=== PATIENT | female | born 1980 | race Hispanic/Latino ===

== ENCOUNTER 2017-04-02 11:05 | Inpatient (IN) | payer MEDICAID ==
[2017-04-02] MEDS ORDERED: levETIRAcetam 1,000 MG in Sodium Chloride 0.9% 100 ML IV STA (11:35)
[2017-04-02] MEDS ORDERED: Sodium Chloride 0.9% 1,000 ML IV STA (11:36)
--- NOTE | 2017-04-02 11:52 | ED PDOC ---
Arrival/HPI - General Chief Complaint: Seizure Time Seen by Provider: 04/02/17 11:14 Historian: Family - History of Present Illness Narrative History of Present Illness (Text): 04/02/17 12:04 A 37 year old female, whose past medical history includes seizures and traumatic brain injury with [employer] shunt, brought in by EMS after having episode of seizure at home. According to patient's cousin, patient began having generalized clonic tonic seizure and was unresponsive at 10:27 in the morning. Cousin notes EMS arrived at 10:41 and patient was continuing to seize the entire time. Per EMS, she was given initially versed 5 mg without resolution of the seizure, then given 2 mg of ativan which did stop the seizure. Total seizure time, per EMS was 25 minutes. Patient was in her usual state of health prior to seizure. Cousin notes patient hasn't had any significant seizures for several months, but had short-lived seizure episodes. Cousin also reports patient took medications this morning. Medications: Lamictal and Keppra and Topiramate Neurologist: Dr. Medrano PMD: Dr. Carbajal Symptom Onset: Sudden Symptom Course: Improving Activities at Onset: Rest Context: Home Past Medical History - Provider Review Nursing Documentation Reviewed: Yes - Infectious Disease Hx of Infectious Diseases: None - Tetanus Immunization Tetanus Immunization: Unknown - Cardiac Hx Cardiac Disorders: No - Pulmonary Hx Respiratory Disorders: No - Neurological Hx Neurological Disorder: Yes Hx Seizures: Yes Other/Comment: traumatic brain injury - HEENT Hx HEENT Disorder: No - Renal Hx Renal Disorder: No - Endocrine/Metabolic Hx Endocrine Disorders: No - Hematological/Oncological Hx Blood Disorders: No - Integumentary Hx Dermatological Disorder: No - Musculoskeletal/Rheumatological Hx Musculoskeletal Disorders: No Hx Falls: No - Gastrointestinal Hx Gastrointestinal Disorders: No - Genitourinary/Gynecological Hx Genitourinary Disorders: No - Psychiatric Hx Psychophysiologic Disorder: Yes Hx Depression: Yes Hx Emotional Abuse: No Hx Physical Abuse: No Hx Substance Use: No - Past Surgical History Past Surgical History: Unable to Obtain - Surgical History Hx Gastric Bypass Surgery: Yes - Anesthesia Hx Anesthesia: Yes Hx Anesthesia Reactions: No Hx Malignant Hyperthermia: No - Suicidal Assessment Feels Threatened In Home Enviroment: No Family/Social History - Physician Review Nursing Documentation Reviewed: Yes Family/Social History: No Known Family HX Smoking Status: Never Smoked Hx Alcohol Use: No Hx Substance Use: No Hx Substance Use Treatment: No Allergies/Home Meds Allergies/Adverse Reactions: Allergies No Known Allergies Allergy (Verified 04/02/17 11:11) Home Medications: Home Meds Medication Instructions Recorded Confirmed Clonazepam [Clonazepam] 0.5 mg PO BID 04/02/17 04/02/17 Lansoprazole [Prevacid] 15 mg PO DAILY 04/02/17 04/02/17 Levetiracetam [Keppra] 1,000 mg PO BID 04/02/17 04/02/17 Sertraline [Zoloft] 100 mg PO DAILY 04/02/17 04/02/17 lamoTRIgine [Lamictal] 200 mg PO BID 04/02/17 04/02/17 Review of Systems - Review of Systems Systems not reviewed;Unavailable: Acuity of Condition Neurological: Seizure Physical Exam Vital Signs Reviewed: Yes Vital Signs Temp Pulse Resp BP Pulse Ox 04/02/17 14:51 82 17 123/79 100 04/02/17 14:50 73 18 114/69 100 04/02/17 14:15 77 18 118/69 100 04/02/17 14:00 89 17 109/69 100 04/02/17 13:44 78 16 126/67 99 04/02/17 13:30 81 17 116/70 97 04/02/17 13:15 95 H 17 133/65 97 04/02/17 13:00 79 17 130/74 100 04/02/17 12:45 91 H 18 101/55 L 100 04/02/17 12:15 97.2 F L 105 H 17 110/61 100 04/02/17 12:06 107 H 16 122/75 98 04/02/17 11:51 111 H 17 136/64 98 04/02/17 11:36 108 H 18 120/68 98 Blood Pressure: Normal Pulse: Tachycardic Respiratory Rate: Normal Appearance: Positive for: Well-Appearing, Non-Toxic, Other (postictal, sedated) Pain Distress: None - Systems Exam Head: Present: Atraumatic, Normocephalic Pupils: Present: PERRL, Other (3 mm bilateral reactive) Conjunctiva: Present: Normal Mouth: Present: Moist Mucous Membranes Pharnyx: Present: Normal. No: ERYTHEMA Neck: Present: Normal Range of Motion Respiratory/Chest: Present: Rhonchi (bilateral). No: Respiratory Distress, Accessory Muscle Use Cardiovascular: Present: Tachycardic. No: Murmurs Abdomen: Present: Normal Bowel Sounds, Scars (old ). No: Tenderness, Distention , Peritoneal Signs Upper Extremity: Present: Normal Inspection. No: Cyanosis, Edema Lower Extremity: Present: Normal Inspection. No: Edema Neurological: Present: GCS=15, CN II-XII Intact, Speech Normal, Other (moving all extremities) Skin: Present: Warm, Dry, Normal Color. No: Rashes Medical Decision Making ED Course and Treatment: 04/02/17 11:44 Impression: A 37 year old female with seizure. Plan: -- EKG -- chest xray -- CT brain -- Keppra, IV fluids -- labs -- Urinalysis -- Reassess and disposition Prior Visits: Notes and results from previous visits were reviewed. Patient was last seen in the Emergency department on 09/13/15 for evaluation of seizure. Patient was admitted to ICU. Patient discharged on 09/17/15. Progress Notes: EKG: Ordered, reviewed, and independently interpreted the EKG. Rate : 114 BPM Rhythm : Sinus tachycardic Interpretation : Normal interval, normal axis, 0.[address] segments inferiorly compared with EKG on 09/14/15 Patient in the emergency department sedated on benzo. Patient is postictal, unable to add to history. On exam, patient is postictal and sedated, maintaining her airway, positive corneal reflex, positive gag reflex. chest xray: Creator : Floyd Howard MD 04/02/17 13:19 IMPRESSION: No active disease. CT HEAD WITHOUT CONTRAST Creator : Floyd Howard MD 04/02/17 13:19 IMPRESSION: No acute intracranial findings. Chronic left-sided subdural fluid collection. 04/02/17 15:43 Patient with noted history - post-ictal and EMS sedation. Patient loaded with keppra in the ED. Patient continuing to be altered but more arousable and maintaining her airway with a gag reflex being present. VBG showing acidosis with PC02 of 70 and normal lactic acid. ABG done shows acidosis with pH of 7.18 with HC03 measured at 20 on the chemistry and PC02 at 49; suggesting metabolic and respiratory acidosis. Patient placed on Bipap. Given acidosis and mental status - will need close ICU monitoring. Case discussed with Dr. Noland for hospitalist service. Case also discussed with Dr. Vance for ICU admission. - Critical Care Critical Care Minutes: 30 minutes - Lab Interpretations Lab Results: 04/02/17 11:45 04/02/17 11:45 Lab Results 04/02/17 12:57: pCO2 49 H, pO2 134.0 H, HCO3 18.3 L, ABG pH 7.18 L*, ABG Total CO2 19.8 L, ABG O2 Saturation 98.5 H, ABG O2 Content 12.3 L, ABG Base Excess - 9.6 L, ABG Hemoglobin 8.9 L, ABG Carboxyhemoglobin 1.0, POC ABG HHb (Measured) 1.5, ABG Methemoglobin 1.2, ABG O2 Capacity 12.5 L, Hgb O2 Saturation 96.4, FiO2 32.0 04/02/17 11:45: Alcohol, Quantitative < 10 04/02/17 11:45: Sodium 141, Chloride 111 H, Potassium 3.8, Carbon Dioxide 20 L, Anion Gap 14, BUN 15, Creatinine 0.9, Est GFR ( Amer) > 60, Est GFR (Non- Af Amer) > 60, Random Glucose 155 H, Calcium 8.7, Phosphorus 5.3 H, Magnesium 2.0, Total Bilirubin 0.2, AST 25, ALT 20, Alkaline Phosphatase 80, Lactate Dehydrogenase 368, Total Creatine Kinase 74, Troponin I < 0.01 D, Total Protein 7.1, Albumin 4.0, Globulin 3.0, Albumin/Globulin Ratio 1.3 04/02/17 11:45: pO2 167 H, VBG pH 7.05 L*, VBG pCO2 70.0 H*, VBG HCO3 19.4 L, VBG Total CO2 21.5 L, VBG O2 Sat (Calc) 98.3 H, VBG Base Excess -11.2 L, VBG Potassium 3.9, Sodium 141.0, Chloride 113.0 H, Glucose 169 H, Lactate 1.7, FiO2 21.0, Venous Blood Potassium 3.9 04/02/17 11:45: PT 10.4, INR 0.96, APTT 25.2 04/02/17 11:45: WBC 9.2 D, RBC 3.86, Hgb 8.9 L, Hct 31.6 L, MCV 81.9, MCH 23.1 L, MCHC 28.2 L, RDW 15.7 H, Plt Count 413, MPV 9.9, Gran % 73.1 H, Lymph % (Auto ) 19.9 L, Pope % (Auto) 6.1 H, Eos % (Auto) 0.5 L, Baso % (Auto) 0.4, Gran # 6.75 H, Lymph # 1.8, Pope # 0.6, Eos # 0.1, Baso # 0.04 04/02/17 11:00: Urine Opiates Screen Negative, Urine Methadone Screen Negative, Ur Barbiturates Screen Negative, Ur Phencyclidine Scrn Negative, Ur Amphetamines Screen Negative, U Benzodiazepines Scrn Positive H, U Oth Cocaine Metabols Negative, U Cannabinoids Screen Negative 04/02/17 11:00: Urine Color Yellow, Urine Appearance Sl cloudy, Urine pH 6.0, Ur Specific [place] >= 1.030, Urine Protein 30 H, Urine Glucose (UA) Negative, Urine Ketones Negative, Urine Blood Large H, Urine Nitrate Negative, Urine Bilirubin Negative, Urine Urobilinogen 0.2, Ur Leukocyte Esterase Negative, Urine RBC 25 - 30, Urine WBC 0 - 2, Ur Epithelial Cells 3 - 4, Urine Bacteria Mod I have reviewed the lab results: Yes - RAD Interpretation Radiology Orders: 04/02/17 11:35 Brain [HEAD W/O CONTRAST] [CT] Stat CHEST PORTABLE [RAD] Stat - EKG Interpretation Interpreted by ED Physician: Yes Type: 12 lead EKG - Medication Orders Current Medication Orders: Levetiracetam 1,000 mg/ Sodium (Chloride) 110 mls @ 460 mls/hr IV Q12 RICARDO Sodium Chloride (Sodium Chloride 0.9%) 1,000 mls @ 100 mls/hr IV .Q10H RICARDO Last Admin: 04/02/17 14:27 Dose: 100 mls/hr Lorazepam (Ativan) 1 mg IVP Q4 PRN; Protocol PRN Reason: Seizure activity Pantoprazole Sodium (Protonix Inj) 40 mg IVP DAILY RICARDO Last Admin: 04/02/17 14:26 Dose: 40 mg Discontinued Medications Levetiracetam 1,000 mg/ Sodium (Chloride) 110 mls @ 440 mls/hr IV ONCE STA Stop: 04/02/17 11:49 Last Admin: 04/02/17 11:50 Dose: 440 mls/hr Sodium Chloride (Sodium Chloride 0.9%) 1,000 mls @ 999 mls/hr IV .Q1H1M STA Stop: 04/02/17 12:36 Last Admin: 04/02/17 11:47 Dose: 999 mls/hr - Scribe Statement The provider has reviewed the documentation as recorded by the Oscar Man Provider Scribe Attestation: All medical record entries made by the Carieibleeanne were at my direction and personally dictated by me. I have reviewed the chart and agree that the record accurately reflects my personal performance of the history, physical exam, medical decision making, and the department course for this patient. I have also personally directed, reviewed, and agree with the discharge instructions and disposition. Disposition/Present on Arrival - Present on Arrival Any Indicators Present on Arrival: No History of DVT/PE: No History of Uncontrolled Diabetes: No Urinary Catheter: No History of Decub. Ulcer: No History Surgical Site Infection Following: None - Disposition Have Diagnosis and Disposition been Completed?: Yes Diagnosis: Seizure Disposition: HOSPITALIZED Disposition Time: 13:30 Patient Plan: Admission, ICU Patient Problems: Current Active Problems Problem Status Onset Seizure Acute Condition: SERIOUS
[2017-04-02 12:02] LABS: ADD MANUAL DIFF? NO
[2017-04-02 12:09] LABS: BASO # 0.04 K/mm3 (0.0-2.0); BASO % 0.4 % (0.0-3.0); EOS # 0.1 (0.0-0.7); EOS % 0.5 % (1.5-5.0); GRAN # 6.75 (1.4-6.5); GRAN % 73.1 % (50.0-68.0); HEMATOCRIT 31.6 % (36.0-48.0); LYMPH # 1.8 (1.2-3.4); LYMPH % 19.9 % (22.0-35.0); MEAN CELL VOLUME 81.9 fL (80.0-105.0); MEAN CORPUSCULAR HEMOGLOBIN 23.1 pg (25.0-35.0); MEAN CORPUSCULAR HGB CONC 28.2 g/dl (31.0-37.0); MEAN PLATELET VOLUME 9.9 fl (7.0-11.0); MONO # 0.6 (0.1-0.6); MONO % 6.1 % (1.0-6.0); PLATELET COUNT 413 10^3/uL (120.0-450.0); RED CELL DISTRIBUTION WIDTH 15.7 % (11.5-14.5); WHITE BLOOD COUNT 9.2 10^3/ul (4.5-11.0)
[2017-04-02 12:16] LABS: VENOUS BLOOD GAS BASE EXCESS -11.2 mmol/L (0.0-2.0)
[2017-04-02 12:17] LABS: ALB/GLOB RATIO 1.3 (1.1-1.8); ALKALINE PHOSPHATASE 80 U/L (38-133); ALT/SGPT 20 U/L (7-56); AST/SGOT 25 U/L (15-39); BILIRUBIN,TOTAL 0.2 mg/dL (0.2-1.3); BLOOD UREA NITROGEN 15 mg/dL (7-21); CALCIUM 8.7 mg/dL (8.4-10.5); CARBON DIOXIDE 20 mmol/L (21-33); CHLORIDE 111 mmol/L (98-107); GFR AFRICAN-AMERICAN > 60; GLUCOSE,RANDOM 155 mg/dL (70-110); INR 0.96 (0.93-1.08); PARTIAL THROMBOPLASTIN TIME 25.2 Seconds (23.7-30.8); PHOSPHOROUS 5.3 mg/dL (2.5-4.5); POTASSIUM 3.8 mmol/L (3.6-5.0); SODIUM 141 mmol/L (132-148); TOTAL PROTEIN 7.1 g/dL (5.8-8.3)
[2017-04-02 12:19] LABS: VENOUS BLOOD PH 7.05 (7.32-7.43)
[2017-04-02 12:33] LABS: TROPONIN I < 0.01 ng/mL
[2017-04-02 12:48] LABS: URINE BILIRUBIN NEGATIVE (NEGATIVE); URINE BLOOD LARGE (NEGATIVE); URINE GLUCOSE (UA) NEGATIVE (NEGATIVE); URINE KETONE NEGATIVE (NEGATIVE); URINE LEUKOCYTE ESTERASE NEGATIVE Leu/uL (NEGATIVE); URINE PROTEIN 30 mg/dL (<30 mg/dL); URINE UROBILINOGEN 0.2 E.U./dL (<1 E.U./dL)
[2017-04-02 12:49] LABS: URINE APPEARANCE SL CLOUDY (CLEAR); URINE COLOR YELLOW (YELLOW)
[2017-04-02 12:54] LABS: URINE RBC 25 - 30 /hpf (0-2)
[2017-04-02 12:55] LABS: URINE BACTERIA MOD (NEG); URINE WBC 0 - 2 /hpf (0-6)
[2017-04-02 13:09] LABS: ARTERIAL BLOOD GAS HCO3 18.3 mmol/L (21-28); ARTERIAL BLOOD GAS O2 CAPACITY 12.5 mL/dl (16-24); ARTERIAL BLOOD GAS O2 CONTENT 12.3 ML/dl (15-23); ARTERIAL BLOOD HGB O2 SAT 96.4 % (95.0-98.0); HHB 1.5 % (0-5); METHEMOGLOBIN 1.2 % (0.0-3.0)
[2017-04-02 13:13] LABS: ARTERIAL BLOOD GAS PH 7.18 (7.35-7.45)
--- NOTE | 2017-04-02 13:16 | CT ---
PROCEDURE: CT HEAD WITHOUT CONTRAST. HISTORY: seizure; ho TBI COMPARISON: 09/13/2015 TECHNIQUE: Axial computed tomography images were obtained through the head/brain without intravenous contrast. Radiation dose: Total exam DLP = 757 mGy-cm. This CT exam was performed using one or more of the following dose reduction techniques: Automated exposure control, adjustment of the mA and/or kV according to patient size, and/or use of iterative reconstruction technique. FINDINGS: HEMORRHAGE: There is a chronic left-sided subdural fluid collection. This is unchanged. BRAIN: There are no acute intracranial findings VENTRICLES: There is a ventricular shunt catheter the crosses the lateral ventricles. There is complete decompression of the left lateral ventricle. There is chronic mass effect with midline shift. This is unchanged. CALVARIUM: Unremarkable. PARANASAL SINUSES: Unremarkable as visualized. No significant inflammatory changes. MASTOID AIR CELLS: Unremarkable as visualized. No inflammatory changes. OTHER FINDINGS: None. IMPRESSION: No acute intracranial findings. Chronic left-sided subdural fluid collection.
--- NOTE | 2017-04-02 13:18 | RAD ---
HISTORY: seizure COMPARISON: 09/13/2015 FINDINGS: LUNGS: No active pulmonary disease. PLEURA: No significant pleural effusion identified, no pneumothorax apparent. CARDIOVASCULAR: Normal. OSSEOUS STRUCTURES: No significant abnormalities. VISUALIZED UPPER ABDOMEN: Normal. OTHER FINDINGS: None. IMPRESSION: No active disease.
[2017-04-02] MEDS: Sodium Chloride 0.9% 1,000 ML IV SCH (14:27)
[2017-04-02 16:11] VITALS: BMI 32.3
[2017-04-02] MEDS ORDERED: Pneumococcal 23-Valent Vaccine IM ONE (16:11)
--- NOTE | 2017-04-02 16:12 | CP.PCM.HP ---
<Moreno Montgomery - Last Filed: 04/02/17 18:27> History of Present Illness - History of Present Illness History of Present Illness: Internal Medicine H&P for Dr. 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 Patient remains post-ictal in the ED, non- verbal, so ROS and HPI limited. As per ED documentation, patient's cousin reported patient began having generalized tonic-clonic seizures and became unresponsive at 10:27 this AM. She remained this way when EMS arrived at 10: 41. Initially given Versed 5 mg without resolution, then given 2 mg of ativan which did stop the seizure. Total seizure time, per EMS, was 25 minutes. Cousin notes patient hasn't had any significant seizures for several months, but has had short-lived seizure episodes. Cousin also reports patient is medication compliant. Attempts by admitting team to reach out to patient's primary contact (Mother) unsuccessful so far as phone number provided goes to voicemail-box that is not set up; will continue to attempt to get in contact and confirm medications and patient's PMD and Neurologist. On exam, patient remains post-ictal, somnolent and non-verbal, but able to nod/ shake head yes/no appropriately to questions and follow most commands. Protecting her airway, eyes open and tracking staff in the room. On Bipap due to ABG results in ED indicating acidosis. Of note, patient had a similar presentation and admission in Sep 2015. During that admission, she had a normal EEG and MRI, was discharged on Keppra, Lamictal , and Topamax, and was instructed to follow up with an Epileptologist. She was also found to have hepatic steatosis and iron deficiency anemia, and was instructed to pursue outpatient workup on both issues. PMH: as above PSH: partial craniotomy, V/P shunt placement FHx: unobtainable SHx: unobtainable at this time; as of admission on Sep 2015: lives at home with mother and son, denies history of tobacco/EtOH/illicits Medications per charting: Lamictal, Keppra, Topiramate As per ED charting: Neurologist: Dr. Medrano PMD: Dr. Carbajal Present on Admission - Present on Admission Any Indicators Present on Admission: No History of DVT/PE: No History of Uncontrolled Diabetes: No Urinary Catheter: No Review of Systems - Review of Systems Systems not reviewed;Unavailable: Other (post-ictal, non-verbal) Past Patient History - Infectious Disease Hx of Infectious Diseases: None - Tetanus Immunizations Tetanus Immunization: Unknown - Past Social History Smoking Status: Never Smoked - CARDIAC Hx Cardiac Disorders: No - PULMONARY Hx Respiratory Disorders: No - NEUROLOGICAL Hx Neurological Disorder: Yes Hx Seizures: Yes Other/Comment: traumatic brain injury - HEENT Hx HEENT Problems: No - RENAL Hx Chronic Kidney Disease: No - ENDOCRINE/METABOLIC Hx Endocrine Disorders: No - HEMATOLOGICAL/ONCOLOGICAL Hx Blood Disorders: No - INTEGUMENTARY Hx Dermatological Problems: No - MUSCULOSKELETAL/RHEUMATOLOGICAL Hx Musculoskeletal Disorders: No Hx Falls: No - GASTROINTESTINAL Hx Gastrointestinal Disorders: No - GENITOURINARY/GYNECOLOGICAL Hx Genitourinary Disorders: No - PSYCHIATRIC Hx Psychophysiologic Disorder: Yes Hx Depression: Yes Hx Emotional Abuse: No Hx Physical Abuse: No Hx Substance Use: No - SURGICAL HISTORY Hx Gastric Bypass Surgery: Yes - ANESTHESIA Hx Anesthesia: Yes Hx Anesthesia Reactions: No Hx Malignant Hyperthermia: No Meds Allergies/Adverse Reactions: Allergies Allergy/AdvReac Type Severity Reaction Status Date / Time No Known Allergies Allergy Verified 04/02/17 11:11 Physical Exam - Constitutional Appears: Non-toxic, Other (Post-ictal, somnolent) - Head Exam Head Exam: ATRAUMATIC, NORMAL INSPECTION. absent: NORMOCEPHALIC (some cranial assymetry, likely 2/2 hx of left craniotomy) - Eye Exam Eye Exam: EOMI (eyes open and appropriately tracking staff throughout room, able to shift to appropriately track staff member addressing her), Normal appearance, PERRL. absent: Conjunctival injection, Scleral icterus Pupil Exam: PERRL. absent: Irregular, Unequal - ENT Exam ENT Exam: Mucous Membranes Moist Additional comments: difficult to assess mucous membranes through BiPAP mask, but they appear appropriately moist - Neck Exam Neck exam: Positive for: Full Rom (moving head around to track staff in room, lifting head off of pillows to view staff at foot of bed) - Respiratory Exam Respiratory Exam: Clear to Auscultation Bilateral, NORMAL BREATHING PATTERN. absent: Accessory Muscle Use, Chest Wall Tenderness, Decreased Breath Sounds, Rales, Rhonchi, Wheezes Additional comments: wearing BiPAP - Cardiovascular Exam Cardiovascular Exam: REGULAR RHYTHM, RRR, +S1, +S2. absent: Bradycardia, Tachycardia, Irregular Rhythm, +S4 - GI/Abdominal Exam GI & Abdominal Exam: Normal Bowel Sounds, Soft. absent: Diminished Bowel Sounds , Distended, Firm, Hyperactive Bowel Sounds, Organomegaly, Rigid - Extremities Exam Extremities exam: Positive for: normal capillary refill, normal inspection, pedal pulses present. Negative for: calf tenderness, joint swelling, pedal edema, tenderness - Back Exam Back exam: absent: CVA tenderness (L), CVA tenderness (R) - Neurological Exam Additional comments: somnolent but otherwise awake and alert, moving extremities spontaneously, able to follow most commands appropriately No generalized or focal tremors/shaking noted No gross seizure activity on exam - Psychiatric Exam Additional comments: Post-ictal and somnolent, non-verbal, but able to follow commands appropriately , and able to answer yes/no questions appropriately by shaking/nodding head - Skin Skin Exam: Dry, Intact, Normal Color, Warm Additional comments: old surgical scar (healed) on abdomen and along lateral aspect of RLE Results - Vital Signs Recent Vital Signs: Last Vital Signs Temp 97.2 F L 04/02/17 12:15 Pulse 77 04/02/17 15:51 Resp 16 04/02/17 15:50 BP 107/62 04/02/17 15:50 Pulse Ox 100 04/02/17 15:50 - Labs Result Diagrams: 04/02/17 11:45 04/02/17 11:45 Assessment & Plan - Assessment and Plan (Free Text) Assessment: This is a 37 yo F with PMH of seizures and 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 Plan: 1) Acute seizure, hx seizure disorder -as described to ED, generalized tonic-clonic seizure lasting approximately 25 minutes -Ativan 2mg and Versed 5mg to break -Hx of seizure disorder 2/2 traumatic brain injury; no new trauma reported -Initially hypothermic on presentation, but no leukocytosis, so unlikely febrile seizure, continue to monitor -somnolent and non-verbal at time of exam but awaking and following commands, likely post-ictal +/- sedative effects of ativan/versed -protecting airway, intubation not indicated at this time -CT head negative for acute process, chronic findings 2/2 BRAKE PRESS OPERATOR shunt noted -Loaded with Keppra in ED, continue IV Keppra 1000mg q12; IV ativan 1mg q4 PRN -Holding topamax and lamictal as no IV form, can resume when post-ictal period passed and patient passes swallow study; NPO for now -ICU for observation, neuro checks, seizure/aspiration precautions -Electrolyte on admission unremarkable except for mildly elevated phosphorous ( 5.3), f/u on AM labs tomorrow -TSH pending -ABG lactate wnl -Trop x1 negative, f/u repeat in AM -Keppra and Lamictal levels pending -Neurology (Tata Lazcano) consulted, appreciate all recs 2) Acidosis on ABG -lactate wnl -pH 7.18, but good pO2 on 32% FiO2 -possibly mixed venous sample vs hypoventilating 2/2 post-ictal and/or medication -repeat ABG after patient more awake and alert, f/u -Bipap started, wean to [place] O2 when feasible 3) Hx iron def anemia -Hgb 8.9 on admit, within range of anemia during last admission -Iron panel ordered, f/u Dispo: ICU, seizure precautions, IV Keppra for seizure ppx, pending Neuro input FEN: NPO, NS 100cc/hr Access: Peripheral IV Consults: Neuro, ICU Ppx: Protonix for GI, SCDs for DVT Patient seen, reviewed, and discussed with attending, Dr. Noland. - Date & Time Date: 04/02/17 Time: 15:30 Decision To Admit - Pt Status Changed To: Hospital Disposition Of: Inpatient Admission - Admit Certification Admit to Inpatient:: After my assessment, the patient will require hospitalization for at least two midnights. This is because of the severity of symptoms shown, intensity of services needed, and/or the medical risk in this patient being treated as an outpatient. - . Bed Request Type: Critical Care <Maddy Noland - Last Filed: 04/03/17 10:49> Results - Vital Signs Recent Vital Signs: Last Vital Signs Temp 99.7 F H 04/03/17 08:00 Pulse 86 04/03/17 10:20 Resp 20 04/03/17 10:20 BP 118/75 04/03/17 10:02 Pulse Ox 97 04/03/17 10:20 - Labs Result Diagrams: 04/03/17 07:55 04/03/17 05:45 Labs: Laboratory Results - last 24 hr 04/02/17 04/02/17 04/03/17 16:45 16:45 05:45 WBC RBC Hgb Hct MCV MCH MCHC RDW Plt Count MPV Gran % Lymph % (Auto) [place] % (Auto) Eos % (Auto) Baso % (Auto) Gran # Lymph # [place] # Eos # Baso # Sodium Potassium Chloride Carbon Dioxide Anion Gap BUN Creatinine Est GFR ( Amer) Est GFR (Non-Af Amer) Random Glucose Calcium Phosphorus Magnesium Iron 36 L TIBC 383 % Saturation 9 L Total Bilirubin AST ALT Alkaline Phosphatase Lactate Dehydrogenase Total Creatine Kinase Troponin I Total Protein Albumin Globulin Albumin/Globulin Ratio TSH 3rd Generation Urine Color Urine Appearance Urine pH Ur Specific [place] Urine Protein Urine Glucose (UA) Urine Ketones Urine Blood Urine Nitrate Urine Bilirubin Urine Urobilinogen Ur Leukocyte Esterase Urine RBC Urine WBC Ur Epithelial Cells Urine Bacteria Ur Random Creatinine 61 Ur Random Sodium 220 Ur Random Potassium 40.2 Urine Chloride 242 04/03/17 04/03/17 04/03/17 05:45 05:45 05:45 WBC 7.1 D RBC 3.15 L Hgb 7.2 L Hct 25.1 L MCV 79.7 L MCH 22.9 L MCHC 28.7 L RDW 15.6 H Plt Count 247 MPV 9.7 Gran % 64.8 Lymph % (Auto) 27.3 [place] % (Auto) 7.7 H Eos % (Auto) 0.1 L Baso % (Auto) 0.1 Gran # 4.61 Lymph # 2.0 [place] # 0.6 Eos # 0.0 Baso # 0.01 Sodium 140 Potassium 3.6 Chloride 113 H Carbon Dioxide 21 Anion Gap 10 BUN 12 Creatinine 0.7 Est GFR ( Amer) > 60 Est GFR (Non-Af Amer) > 60 Random Glucose 86 Calcium 8.6 Phosphorus 2.3 L Magnesium 2.1 Iron TIBC % Saturation Total Bilirubin 0.3 AST 13 L ALT 19 Alkaline Phosphatase 63 Lactate Dehydrogenase 244 L Total Creatine Kinase 67 Troponin I < 0.01 Total Protein 5.8 Albumin 3.2 Globulin 2.6 Albumin/Globulin Ratio 1.2 TSH 3rd Generation 0.82 Urine Color Urine Appearance Urine pH Ur Specific [place] Urine Protein Urine Glucose (UA) Urine Ketones Urine Blood Urine Nitrate Urine Bilirubin Urine Urobilinogen Ur Leukocyte Esterase Urine RBC Urine WBC Ur Epithelial Cells Urine Bacteria Ur Random Creatinine Ur Random Sodium Ur Random Potassium Urine Chloride 04/03/17 04/03/17 07:55 08:30 WBC RBC Hgb 7.3 L Hct 25.3 L MCV MCH MCHC RDW Plt Count MPV Gran % Lymph % (Auto) [place] % (Auto) Eos % (Auto) Baso % (Auto) Gran # Lymph # [place] # Eos # Baso # Sodium Potassium Chloride Carbon Dioxide Anion Gap BUN Creatinine Est GFR ( Amer) Est GFR (Non-Af Amer) Random Glucose Calcium Phosphorus Magnesium Iron TIBC % Saturation Total Bilirubin AST ALT Alkaline Phosphatase Lactate Dehydrogenase Total Creatine Kinase Troponin I Total Protein Albumin Globulin Albumin/Globulin Ratio TSH 3rd Generation Urine Color Yellow Urine Appearance Clear Urine pH 6.5 Ur Specific [place] 1.015 Urine Protein Trace H Urine Glucose (UA) Negative Urine Ketones Negative Urine Blood Small H Urine Nitrate Negative Urine Bilirubin Negative Urine Urobilinogen 0.2 Ur Leukocyte Esterase Small H Urine RBC 0 - 2 Urine WBC Tntc Ur Epithelial Cells 0 - 2 Urine Bacteria Small Ur Random Creatinine Ur Random Sodium Ur Random Potassium Urine Chloride Attending/Attestation - Attestation I have personally seen and examined this patient.: Yes I have fully participated in the care of the patient.: Yes I have reviewed all pertinent clinical information: Yes Notes (Text): 04/03/17 10:44 Hospitalist note: Patient seen and examined with resident in ER. 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 Patient remains post-ictal in the ED. ABG showed severe acidosis secondary to post ictal/resp acidosis/post seizure. currenlty post ictal. admit to ICU and monitor closely. continue IV keppra and ativan. Neurology evaluation requested. history of Iron deficiency anemia: monitor closely. Called patient's mother for more information. upon discharge the patient will follow up with PMD DR. Carbajal and Neurology at [facility] [place]. 04/03/17 10:48
--- NOTE | 2017-04-02 19:18 | CON ---
DATE: 04/02/2017 REQUESTING PHYSICIAN: Dr. Willis. CHIEF COMPLAINT: The patient presented with seizure. HISTORY OF PRESENT ILLNESS: The patient is a 37-year-old obese female with a history of seizure diso rder and traumatic brain injury. 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 The patient at home had a seizure this morning, presented to the Emergency Room postictal with some respiratory insufficiency requirin g oxygen and BiPAP. Family members stated that the patient has not had a seizure for quite some time , and this morning, she did take her medications. No fever, chills. No nausea, vomiting. No abdomi nal pain, no chest pain, no diarrhea. The patient is admitted to the intensive care unit. At this p oint, she is no longer postictal and with no respiratory distress. O2 saturation is 98% on room air. The patient has no complaints of pain and is awake and alert, oriented x 3, in her usual mental sta tus and stated health. PAST MEDICAL HISTORY: As above. ALLERGIES: She has no known allergies. CURRENT MEDICATIONS: Can be evaluated as per the nurse's intake form. SOCIAL HISTORY: No history of smoking, ETOH abuse or drug abuse. REVIEW OF SYSTEMS: CONSTITUTIONAL: All negative. HEENT: All negative. RESPIRATORY: All negative. CARDIOVASCULAR: All negative. GASTROINTESTINAL: All negative. GENITOURINARY: All negative. NEUROPSYCHIATRIC: The patient had a traumatic brain injury with seizure disorder. ENDOCRINE: All negative. HEMATOLOGIC: All negative. IMMUNOLOGIC: All negative. INTEGRITY: All negative. PHYSICAL EXAMINATION: VITAL SIGNS: Note that her temperature is 97.2, her pulse is 85, respirations are 17, and BP is 123/ 79. SKIN: Warm and dry. HEAD: Atraumatic, normocephalic. EYES: Reactive to light. EARS, NOSE AND THROAT: Seem to be within normal limits. NECK: Supple, no JVD, no thyroid enlargement, no lymph nodes. HEART: Has a regular rate and rhythm. Normal S1, S2. LUNGS: Reveal good breath sounds bilaterally. ABDOMEN: Soft, nontender, normal bowel sounds. No organomegaly noted. GENITALIA AND RECTAL: Deferred. MUSCULOSKELETAL: No joint deformities. EXTREMITIES: Reveal no edema. NEUROLOGIC: She seems to be grossly intact. LABORATORY DATA: The patient's white count is 9.2, hemoglobin is 8.9, hematocrit 31.6 with platelets of 413,000. Sodium is 141, potassium 3.8, chloride 111, CO2 of 20 with a BUN of 15, creatinine of 0 .9, and a glucose of 155. As far as the patient's chest x-ray is within normal limits. CT of the he ad reveals no acute intracranial findings, chronic left-sided subdural fluid collection. IMPRESSION: The patient had a seizure and has a seizure disorder, has a history of traumatic brain i njury and ASSOCIATE PROF[employer] shunt. The patient has anemia and obesity. PLAN: Dr. Lazcano for neuro consult has been called. The patient is on Ativan p.r.n. and is getting Keppra. We will continue Protonix and IV fluids. We will continue to monitor closely in the ICU and continue to treat aggressively along with the other consultants and the primary care doctor. Tommie Vance MD cc: [id number] TT: 04/02/2017 19:17:57 Confirmation # [id number] Dictation # [id number] mn
[2017-04-02] MEDS ORDERED: levETIRAcetam 1,000 MG in Sodium Chloride 0.9% 100 ML IV SCH (22:00)
[2017-04-03] MEDS: Sodium Chloride 0.9% 1,000 ML IV SCH (02:01)
[2017-04-03 06:00] LABS: ADD MANUAL DIFF? NO
[2017-04-03 06:15] LABS: BASO # 0.01 K/mm3 (0.0-2.0); BASO % 0.1 % (0.0-3.0); EOS % 0.1 % (1.5-5.0); GRAN # 4.61 (1.4-6.5); GRAN % 64.8 % (50.0-68.0); HEMATOCRIT 25.1 % (36.0-48.0); LYMPH % 27.3 % (22.0-35.0); MEAN CELL VOLUME 79.7 fL (80.0-105.0); MEAN CORPUSCULAR HEMOGLOBIN 22.9 pg (25.0-35.0); MEAN CORPUSCULAR HGB CONC 28.7 g/dl (31.0-37.0); MEAN PLATELET VOLUME 9.7 fl (7.0-11.0); MONO # 0.6 (0.1-0.6); MONO % 7.7 % (1.0-6.0); PLATELET COUNT 247 10^3/uL (120.0-450.0); RED CELL DISTRIBUTION WIDTH 15.6 % (11.5-14.5); WHITE BLOOD COUNT 7.1 10^3/ul (4.5-11.0)
[2017-04-03 06:29] LABS: IRON 36 ug/dL (45-180)
[2017-04-03 06:39] LABS: ALB/GLOB RATIO 1.2 (1.1-1.8); ALKALINE PHOSPHATASE 63 U/L (38-133); ALT/SGPT 19 U/L (7-56); AST/SGOT 13 U/L (15-39); BILIRUBIN,TOTAL 0.3 mg/dL (0.2-1.3); BLOOD UREA NITROGEN 12 mg/dL (7-21); CALCIUM 8.6 mg/dL (8.4-10.5); CARBON DIOXIDE 21 mmol/L (21-33); CHLORIDE 113 mmol/L (98-107); GFR AFRICAN-AMERICAN > 60; GLUCOSE,RANDOM 86 mg/dL (70-110); MAGNESIUM 2.1 mg/dL (1.7-2.2); PHOSPHOROUS 2.3 mg/dL (2.5-4.5); POTASSIUM 3.6 mmol/L (3.6-5.0); SODIUM 140 mmol/L (132-148); TOTAL PROTEIN 5.8 g/dL (5.8-8.3)
[2017-04-03 06:57] LABS: TROPONIN I < 0.01 ng/mL
[2017-04-03 08:04] LABS: HEMATOCRIT 25.3 % (36.0-48.0)
[2017-04-03 08:34] LABS: CHLORIDE URINE 242 mmol/L (32-290)
[2017-04-03] MEDS ORDERED: Potassium Phosphate 15 MMOLE in Sodium Chloride 0.9% 250 ML IVPB ONE (08:39)
[2017-04-03 08:53] LABS: PH,URINE 6.5 (4.7-8.0); URINE APPEARANCE CLEAR (CLEAR); URINE BILIRUBIN NEGATIVE (NEGATIVE); URINE BLOOD SMALL (NEGATIVE); URINE COLOR YELLOW (YELLOW); URINE GLUCOSE (UA) NEGATIVE (NEGATIVE); URINE KETONE NEGATIVE (NEGATIVE); URINE LEUKOCYTE ESTERASE SMALL Leu/uL (NEGATIVE); URINE PROTEIN TRACE mg/dL (<30 mg/dL); URINE UROBILINOGEN 0.2 E.U./dL (<1 E.U./dL)
[2017-04-03] MEDS: Cefepime 1gm in NS 100ml 1 GM/100 ML BAG IVPB SCH ×2 (09:05→13:24)
[2017-04-03] MEDS: Vancomycin 1gm in NS 250ml 1 GM/250 ML BAG IVPB SCH ×2 (09:06→20:27)
[2017-04-03 09:08] LABS: URINE BACTERIA SMALL (NEG); URINE EPITHELIAL CELLS 0 - 2 /hpf (0-5); URINE RBC 0 - 2 /hpf (0-2); URINE WBC TNTC /hpf (0-6)
[2017-04-03] MEDS ORDERED: Sodium Phosphate 15 MMOLE in Sodium Chloride 0.9% 250 ML IVPB ONE (09:12)
--- NOTE | 2017-04-03 09:36 | PN ---
DATE: 04/03/2017 SUBJECTIVE: The patient is resting in bed. No complaints of shortness of breath, cough, wheezing, c hest congestion and no respiratory problems overnight. The patient did have a fever overnight and ID consult has been called. No abdominal pain, no diarrhea. She continues to be oriented x 3 and no c omplaints of headaches. PHYSICAL EXAMINATION: VITAL SIGNS: The patient's temperature is 101.2, pulse is 69, respirations are 19, and BP is 104/57. SKIN: Warm and dry. HEAD: Atraumatic, normocephalic. EYES: Reactive to light. EARS, NOSE AND THROAT: Seem to be within normal limits. NECK: Supple. No JVD, no thyroid enlargement, no lymph nodes. HEART: Has a regular rate and rhythm. Normal S1, S2. LUNGS: Reveal good breath sounds bilaterally. ABDOMEN: Soft, nontender, normal bowel sounds. No organomegaly noted. GENITALIA AND RECTAL: Deferred. MUSCULOSKELETAL: No joint deformities. EXTREMITIES: Reveal no significant edema. NEUROLOGIC: She seems to be grossly intact. LABORATORIES: Her hemoglobin is 7.3 and her hematocrit is 25.3. The patient's sodium is 140, potass ium 3.6, chloride 113, CO2 of 21 with a BUN of 12, creatinine of 0.7, and a glucose of 86. IMPRESSION: This patient has fever, etiology unclear, must rule out sepsis. She has seizure disorde r and admitted with seizure activity. She has a history of traumatic brain injury and a ventriculope ritoneal shunt. Also is noted to have iron deficiency anemia and obesity. PLAN: Dr. Valentin has been consulted for ID and Dr. Noland, the attending, will administer iro n for the anemia. She will be followed by Dr. Lazcano of neuro and is given Ativan p.r.n. The patien t is on Keppra and Protonix as well as IV fluids. We will continue to monitor closely and treat aggr essively along with the other consultants and the primary care doctor. Tommie Vance MD cc: [id number] TT: 04/03/2017 09:36:26 Confirmation # [id number] Dictation # [id number] en
--- NOTE | 2017-04-03 10:36 | CON ---
DATE: 04/03/2017 CHIEF COMPLAINT: Seizures. HISTORY OF PRESENTING ILLNESS: This is a 37-year-old woman with history of traumatic brain injuries, status post DIRECTOR OF GLOBAL MARKETING shunt, status post seizures, has atrophy of the left hippocampus, who is on seizure m edications such as Topamax, Lamictal and Keppra, unsure of exact doses, but the last dose is in the m edical record receiving Topamax of 200 b.i.d., Lamictal 200 b.i.d. and Keppra 1500 b.i.d. She sees a neurologist in [place], who she has an appointment on Tuesday. Came in for generalized tonic- clonic seizure and was unresponsive. Initially, was given Versed 5 mg without resolution and was giv en 2 mg of Ativan which stopped the seizure. She was seizing for 25 minutes. Currently, she is awak e, alert, oriented to person, place and year. Recall after 5 minutes is 0/3. She moves all extremit ies equally. She is no longer postictal. She has an appointment with her epileptologist for seizure management on Tuesday in [place]. Currently, no acute events overnight. PAST MEDICAL HISTORY: History of traumatic brain injury, status post DIRECTOR OF GLOBAL MARKETING shunt, status post partial c raniotomy, status post seizures. REVIEW OF SYSTEMS: A 14-point is negative except for in the HPI. SOCIAL HISTORY: No illicit drug use, smoking, or ETOH abuse. MEDICATIONS: Reviewed via nurse's reconciliation sheet. FAMILY HISTORY: Noncontributory. ALLERGIES: No known drug allergies. PHYSICAL EXAMINATION: VITAL SIGNS: Temperature 99.7, pulse rate of 72, blood pressure 103/54, respiratory rate of 19, oxyg en saturation 98% via room air. GENERAL: The patient is sitting up in bed, in no acute distress. HEENT: Atraumatic, normocephalic. PERRLA. Extraocular muscles intact. NECK: Supple, no JVD, no adenopathy noted. LUNGS: Clear to auscultation. No adventitious sounds. HEART: S1, S2, normal rate and rhythm. No murmurs, rubs, or gallops. ABDOMEN: Soft, nontender, nondistended. Bowel sounds present. EXTREMITIES: No clubbing, no cyanosis. Peripheral pulses bilaterally. NEUROLOGIC: The patient is alert, oriented to person, place, month and year. Speech is fluent, with out any errors. Recall after 5 minutes is 0/3. Poor attention span, slowed thought process. Crania l nerves II-XII are intact. MOTOR: Normal tone, normal bulk of muscle. Moves all extremities equally. SENSORY: Light touch, pinprick, proprioception, vibration intact. DEEP TENDON REFLEXES: 2+ throughout. COORDINATION: [id number] intact. GAIT: Deferred for now. LABORATORIES: Sodium is 140, potassium 3.6, chloride of 113, carbon dioxide 21, BUN of 12, creatinin e 0.7. Random glucose of 86. ASSESSMENT AND PLAN: This is a 37-year-old woman with history of traumatic brain injury, status post ventriculoperitoneal shunt, status post seizures, was on Topamax, Lamictal and Keppra per her epilep tologist, but unsure of the exact dosages, need to confirm with pharmacy. She had a breakthrough gen eralized tonic-clonic seizure approximately lasting a total of 25 minutes. She is currently posticta l and now she is neurologically intact, following commands. Her breakthrough seizure could be likely secondary to sleep deprivation or dehydration. At this time, recommend: 1. To continue with the home seizure medications at her current doses in terms of Lamictal, Topamax and Keppra and confirm with her pharmacy the exact dosages. 2. She can follow with her neurologist. She says she has appointment on Tuesday in [place] fo r further adjust her seizure medications. 3. Continue with ICU management. Osman Lazcano MD cc: [id number] TT: 04/03/2017 10:34:58 Confirmation # [id number] Dictation # [id number] en
--- NOTE | 2017-04-03 11:48 | CP.PCM.PN ---
<Mac Daniels - Last Filed: 04/03/17 11:55> Subjective - Date & Time of Evaluation Date of Evaluation: 04/03/17 Time of Evaluation: 07:20 - Subjective Subjective: Pt was seen and examined at bedside. Pt is AAOx3 and answering questions appropriately. Pt has mild complaints of ortiz this morning. No neck stiffness or photophobia noted. Pt was febrile overnight with max temp of 101.2, iv tylenol administered. Currently afebrile. . Pt has chisholm in place. Pt passed swallow eval. Pt denied fever, chills, sob, chest pains, abdominal pains, n/v/d/c. Objective - Vital Signs/Intake and Output Vital Signs (last 24 hours): Temp Pulse Resp BP Pulse Ox 99.7 F H 86 20 118/75 97 04/03/17 08:00 04/03/17 10:20 04/03/17 10:20 04/03/17 10:02 04/03/17 10:20 Intake and Output: 04/03/17 04/03/17 06:59 18:59 Intake Total 1400 Output Total 850 Balance 550 - Medications Medications: Current Medications Ferrous Gluconate (Fergon) 324 mg PO TID [facility] Folic Acid (Folic Acid) 1 mg PO BID [facility] Last Admin: 04/03/17 10:06 Dose: 1 mg Acetaminophen (Ofirmev) 1,000 mg in 100 mls @ 400 mls/hr IVPB Q6H PRN PRN Reason: Headache Stop: 04/04/17 17:51 Last Admin: 04/02/17 18:04 Dose: 400 mls/hr Cefepime HCl (Maxipime 1gm) 1 gm in 100 mls @ 100 mls/hr IVPB Q8 [facility] PRN Reason: Protocol Stop: 04/12/17 07:54 Last Admin: 04/03/17 09:05 Dose: 100 mls/hr Vancomycin HCl (Vancomycin 1gm) 1 gm in 250 mls @ 167 mls/hr IVPB Q12H [facility] PRN Reason: Protocol Stop: 04/12/17 08:01 Last Admin: 04/03/17 09:06 Dose: 167 mls/hr Sodium Phosphate 15 mmole/ (Sodium Chloride) 255 mls @ 42.5 mls/hr IVPB ONCE ONE Stop: 04/03/17 15:11 Last Admin: 04/03/17 10:09 Dose: 42.5 mls/hr Ibuprofen (Motrin Tab) 600 mg PO Q6H PRN PRN Reason: Pain, moderate (4-7) Last Admin: 04/03/17 09:05 Dose: 600 mg Lamotrigine (Lamictal) 200 mg PO BID [facility] PRN Reason: Protocol Last Admin: 04/03/17 10:11 Dose: 200 mg Levetiracetam (Keppra) 1,000 mg PO BID [facility] Last Admin: 04/03/17 09:05 Dose: 1,000 mg Levetiracetam (Keppra) 250 mg PO BID [facility] Last Admin: 04/03/17 10:08 Dose: 250 mg Lorazepam (Ativan) 1 mg IVP Q4 PRN; Protocol PRN Reason: Seizure activity Multivitamins/Minerals (Therapeutic-M Tab) 1 tab PO 0800 [facility] Pantoprazole Sodium (Protonix Inj) 40 mg IVP DAILY [facility] Last Admin: 04/03/17 09:06 Dose: 40 mg Topiramate (Topamax) 200 mg PO BID [facility] PRN Reason: Protocol Last Admin: 04/03/17 10:09 Dose: 200 mg - Labs Labs: 04/03/17 07:55 04/03/17 05:45 PT 10.4 Seconds (9.9-11.8) 04/02/17 11:45 INR 0.96 (0.93-1.08) 04/02/17 11:45 APTT 25.2 Seconds (23.7-30.8) 04/02/17 11:45 - Constitutional Appears: No Acute Distress - Head Exam Head Exam: ATRAUMATIC, NORMAL INSPECTION, NORMOCEPHALIC - Eye Exam Eye Exam: EOMI, Normal appearance, PERRL Pupil Exam: NORMAL ACCOMODATION, PERRL - ENT Exam ENT Exam: Mucous Membranes Moist, Normal Exam - Neck Exam Neck Exam: Full ROM, Normal Inspection. absent: Lymphadenopathy - Respiratory Exam Respiratory Exam: Clear to Ausculation Bilateral, NORMAL BREATHING PATTERN - Cardiovascular Exam Cardiovascular Exam: REGULAR RHYTHM, +S1, +S2. absent: Murmur - GI/Abdominal Exam GI & Abdominal Exam: Soft, Normal Bowel Sounds. absent: Tenderness - Extremities Exam Extremities Exam: Full ROM, Normal Capillary Refill, Normal Inspection. 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 1) Acute seizure, hx seizure disorder -Hx of seizure disorder 2/2 traumatic brain injury; no new trauma reported -febrile overnight, IV tylenol currently afebrile, no signs of infx, will fu procal and consult ID - ID Dr. Valentin recommended vancomycin - passed swallow study will restart home meds - neuro checks, seizure/aspiration precautions -TSH fu -Neurology (Tata Lazcano) consulted, appreciate all recs 2) Acidosis on ABG - resolving, likely 2/2 above -lactate wnl -repeat ABG f/u 3) Hx iron def anemia -Hgb 8.9 on admit, within range of anemia during last admission -Iron panel ordered, f/u - IV iron supplement Ppx: Protonix for GI, SCDs for DVT Patient seen, reviewed, and discussed with attending, Dr. Noland. <Maddy Noland - Last Filed: 04/03/17 13:48> Objective - Vital Signs/Intake and Output Vital Signs (last 24 hours): Temp Pulse Resp BP Pulse Ox 99.8 F H 70 16 98/56 L 97 04/03/17 11:47 04/03/17 11:47 04/03/17 11:47 04/03/17 11:47 04/03/17 11:47 Intake and Output: 04/03/17 04/03/17 06:59 18:59 Intake Total 1400 600 Output Total 850 1060 Balance 550 -460 - Medications Medications: Current Medications Ferrous Gluconate (Fergon) 324 mg PO TID [facility] Last Admin: 04/03/17 13:26 Dose: 324 mg Folic Acid (Folic Acid) 1 mg PO BID [facility] Last Admin: 04/03/17 10:06 Dose: 1 mg Acetaminophen (Ofirmev) 1,000 mg in 100 mls @ 400 mls/hr IVPB Q6H PRN PRN Reason: Headache Stop: 04/04/17 17:51 Last Admin: 04/02/17 18:04 Dose: 400 mls/hr Cefepime HCl (Maxipime 1gm) 1 gm in 100 mls @ 100 mls/hr IVPB Q8 [facility] PRN Reason: Protocol Stop: 04/12/17 07:54 Last Admin: 04/03/17 13:24 Dose: 100 mls/hr Vancomycin HCl (Vancomycin 1gm) 1 gm in 250 mls @ 167 mls/hr IVPB Q12H [facility] PRN Reason: Protocol Stop: 04/12/17 08:01 Last Admin: 04/03/17 09:06 Dose: 167 mls/hr Sodium Phosphate 15 mmole/ (Sodium Chloride) 255 mls @ 42.5 mls/hr IVPB ONCE ONE Stop: 04/03/17 15:11 Last Admin: 04/03/17 10:09 Dose: 42.5 mls/hr Ibuprofen (Motrin Tab) 600 mg PO Q6H PRN PRN Reason: Pain, moderate (4-7) Last Admin: 04/03/17 09:05 Dose: 600 mg Lamotrigine (Lamictal) 200 mg PO BID [facility] PRN Reason: Protocol Last Admin: 04/03/17 10:11 Dose: 200 mg Levetiracetam (Keppra) 1,000 mg PO BID [facility] Last Admin: 04/03/17 09:05 Dose: 1,000 mg Levetiracetam (Keppra) 250 mg PO BID [facility] Last Admin: 04/03/17 10:08 Dose: 250 mg Lorazepam (Ativan) 1 mg IVP Q4 PRN; Protocol PRN Reason: Seizure activity Multivitamins/Minerals (Therapeutic-M Tab) 1 tab PO 0800 [facility] Pantoprazole Sodium (Protonix Inj) 40 mg IVP DAILY [facility] Last Admin: 04/03/17 09:06 Dose: 40 mg Topiramate (Topamax) 200 mg PO BID [facility] PRN Reason: Protocol Last Admin: 04/03/17 10:09 Dose: 200 mg - Labs Labs: 04/03/17 07:55 04/03/17 05:45 PT 10.4 Seconds (9.9-11.8) 04/02/17 11:45 INR 0.96 (0.93-1.08) 04/02/17 11:45 APTT 25.2 Seconds (23.7-30.8) 04/02/17 11:45 Attending/Attestation - Attestation I have personally seen and examined this patient.: Yes I have fully participated in the care of the patient.: Yes I have reviewed all pertinent clinical information, including history, physical exam and plan: Yes Notes (Text): 04/03/17 13:45 Hospitalist note: Patient seen and examined with resident in ER. 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 patient is currently awake and alert. Patient with mild memory problems due to traumatic brain injury in the past. continue po keppra and ativan. Neurology evaluation with Dr. Lazcano appreciated. Started back on Lamictal and Topamax. an episode of fever; cultures ordered. Started on vancomycin and cefepime. ID evaluation appreciated. history of Iron deficiency anemia: started on IV iron. case discussed with patient's mother in detail. upon discharge the patient will follow up with PMD DR. Carbajal and Neurology at [facility].
--- NOTE | 2017-04-03 15:17 | CON ---
DATE: 04/03/2017 The patient seen earlier today in CCU 129, bed 2. CHIEF COMPLAINT: Fever x 1 day. HISTORY OF PRESENT ILLNESS: This is a 37-year-old female with a history of seizures, history of trau matic brain injury and history of subdural hematoma, who was admitted now with an episode of seizures and infectious disease consultation requested because of a fever of 101. REVIEW OF SYSTEMS: Reveals the patient is awake and alert and oriented. The patient did have a feve r. She is not having any chest pain. She is having cough and there is no shortness of breath. No a bdominal pain, diarrhea or constipation. PAST MEDICAL HISTORY: Significant for seizures and traumatic brain injury, subdural hematoma. PAST SURGICAL HISTORY: Significant for a BLOCK FEEDER shunt x 2. ALLERGIES: The patient has no known. PHYSICAL EXAMINATION: GENERAL: The patient is in bed, in no acute distress. She is answering questions appropriately. VITAL SIGNS: Temperature of 101, blood pressure is 103/50, respiratory rate of 24, heart rate of 73. HEENT: Unremarkable. NECK: Supple. LUNGS: Have decreased breath sounds. HEART: Normal S1, S2. ABDOMEN: Soft, nontender. LABORATORY EXAMINATION: Reveals a white count of 9.4, hemoglobin of 8, platelets of 413. Chemistrie s reveals a BUN of 15, creatinine of 0.9 and the glucose is noted. Urinalysis is noted. Microbiolog y is pending. The patient had a chest x-ray, which is reported to be negative. CAT scan of the head, which is no c hanges. ASSESSMENT AND PLAN: A 37-year-old female with a history of seizures and traumatic brain injury, sub dural hematoma, central nervous system shunt, now with seizures and 101 temperature, must rule out as piration pneumonia. I doubt herpes or encephalitis or a shunt infection. The patient is awake and o riented at this time. She is doing well. Case discussed with Dr. Osman Lazcano, who also agrees robby t he doubts any shunt infection or herpes, encephalitis. However, if the fever persists, will need a spinal tap. At this time, we will start the patient on vancomycin and cefepime. Pending procalcito yu, blood cultures, urine cultures and although the chest x-ray is negative, we will consider a CT o f the chest also. Lonnie Valentin MD cc: [id number] TT: 04/03/2017 15:16:23 Confirmation # [id number] Dictation # [id number] en
--- NOTE | 2017-04-03 16:16 | CON ---
DATE: 04/03/2017 REASON FOR CONSULTATION: Bradycardia, admitted with seizure disorder, possible Artefact BRIEF CLINICAL HISTORY: This is a 37-year-old female with history of traumatic brain injury, history of CHAINSTITCH SEWING MACHINE OPERATOR shunt, status post seizure, history of seizure disorder on anti-seizure medication, was brought here after having a witnessed seizure for 25 minutes at home. Denies any chest pain, shortness of breath, any palpitation. Cardiology consult was called for possible bradycardia as Telemetry Srip showed bradycardia with possible CHB only one lead and second lead had artefact of cable (possible artefact0, hemodynamically remained stable PAST MEDICAL HISTORY: Significant for traumatic brain injury, history of status post CHAINSTITCH SEWING MACHINE OPERATOR shunt, status post partial craniotomy, status post seizure. SOCIAL HISTORY: No history of alcohol abuse, no history of tobacco abuse. CURRENT MEDICATIONS: Before the patient came in to the hospital, was taking Claritin, folic acid, Mobic, Keppra, Prevacid, Lamictal, Topamax. PREVIOUS CARDIAC WORKUP: The patient had echocardiography on 09/17/2015 that shows normal chamber size, ejection fraction 60%-65%, trace TR, trace to mild MR. REVIEW OF SYSTEMS: As per HPI. PHYSICAL EXAMINATION: VITAL SIGNS: Temperature afebrile. Height of the patient 5 feet 6 inches, weight of the patient 200 pounds, body mass index 32.3 kg/meters squared. Temperature afebrile, heart rate 70, blood pressure 98/56. HEENT: PERRLA. Extraocular muscles intact. NECK: Supple. No carotid bruits. No thyromegaly. CHEST: Clear to auscultation. HEART: S1, S2 regular. ABDOMEN: Soft. EXTREMITIES: Clubbing, cyanosis negative. BLOOD WORKUP: WBC 7. , hemoglobin 7.2, hematocrit 25.1, platelet count 247. Chemistry shows sodium 140, potassium 3.6, chloride 113, carbon dioxide 21 , anion gap of 10, BUN 12, creatinine 0.7. Troponin 0.01, negative. EKG showed normal sinus, no acute ST-T changes noted, rate is 77. IMPRESSION: A 37-year-old female with a past medical history of seizure disorder, traumatic brain injury, status post craniotomy in the past, admitted with seizure disorder, no evidence of bradycardia on EKG, possible telemetry strip has Artefact history of anemia. RECOMMENDATION: Continue neuro workup anfd F/U as above. monitor in telemetry Bed and will put holter to eliminate possiblity of true heart block Vs artefact Start seizure medications. Continue GI workup for anemia. The patient's last echo shows normal chamber size, normal ejection fraction, trace mitral regurigtation, trace tricuspid regurgitation. Will follow with you. Will get lipid profile, TSH and will get hemoglobin A1c. Will follow with you. Thank you, Dr. Noland, for providing us the opportunity in taking care of the patient. Will follow with you. No evidence of acute myocardial infarction or acute coronary syndrome noted. Kera Johns MD cc: [phone] TT: 04/03/2017 16:15:06 Confirmation # [id number] Dictation # [id number] en MTDD
[2017-04-03] MEDS ORDERED: DiphenhydrAMINE 50 mg/ml Inj IVP STA (17:00)
--- NOTE | 2017-04-04 01:12 | CARD ---
APPROVED REPORT EKG Measurement Heart [id number] <Conclusion> Normal sinus rhythm Normal ECG
--- NOTE | 2017-04-04 01:28 | CARD ---
APPROVED REPORT EKG Measurement Heart [id number] <Conclusion> Sinus tachycardia Possible Left atrial enlargement Borderline ECG
[2017-04-04 06:29] LABS: ADD MANUAL DIFF? NO
[2017-04-04 06:37] LABS: BASO # 0.02 K/mm3 (0.0-2.0); BASO % 0.3 % (0.0-3.0); GRAN # 5.03 (1.4-6.5); GRAN % 68.8 % (50.0-68.0); LYMPH # 1.6 (1.2-3.4); LYMPH % 22.3 % (22.0-35.0); MEAN CELL VOLUME 80.1 fL (80.0-105.0); MEAN CORPUSCULAR HEMOGLOBIN 22.8 pg (25.0-35.0); MEAN CORPUSCULAR HGB CONC 28.5 g/dl (31.0-37.0); MEAN PLATELET VOLUME 9.7 fl (7.0-11.0); MONO # 0.6 (0.1-0.6); MONO % 8.6 % (1.0-6.0); PLATELET COUNT 283 10^3/uL (120.0-450.0); RED CELL DISTRIBUTION WIDTH 15.9 % (11.5-14.5); WHITE BLOOD COUNT 7.3 10^3/ul (4.5-11.0)
[2017-04-04 06:46] LABS: ALB/GLOB RATIO 1.3 (1.1-1.8); ALKALINE PHOSPHATASE 64 U/L (38-133); ALT/SGPT 19 U/L (7-56); AST/SGOT 16 U/L (15-39); BILIRUBIN,TOTAL 0.2 mg/dL (0.2-1.3); BLOOD UREA NITROGEN 14 mg/dL (7-21); CALCIUM 9.3 mg/dL (8.4-10.5); CARBON DIOXIDE 21 mmol/L (21-33); CHLORIDE 113 mmol/L (98-107); CHOLESTEROL 159 mg/dL (130-200); GFR AFRICAN-AMERICAN > 60; GLUCOSE,RANDOM 91 mg/dL (70-110); MAGNESIUM 2.2 mg/dL (1.7-2.2); PHOSPHOROUS 3.2 mg/dL (2.5-4.5); POTASSIUM 3.6 mmol/L (3.6-5.0); SODIUM 142 mmol/L (132-148); TOTAL PROTEIN 6.3 g/dL (5.8-8.3)
--- NOTE | 2017-04-04 07:34 | CP.PCM.PN ---
<MyahAlma Rosa - Last Filed: 04/04/17 10:04> Subjective - Date & Time of Evaluation Date of Evaluation: 04/04/17 Time of Evaluation: 07:32 - Subjective Subjective: ICU Progress Note Patient seen and examined at bedside. There were no acute overnight events. Patient reports having a headache today, but denies CP, SOB, n/v/d, numbness/ tingling, fever or chills. She reports feeling better today. She did not have any fever overnight. Objective - Vital Signs/Intake and Output Vital Signs (last 24 hours): Temp Pulse Resp BP Pulse Ox 98 F 82 14 97/51 L 97 04/04/17 04:00 04/04/17 07:00 04/04/17 07:00 04/04/17 06:02 04/04/17 07:00 Intake and Output: 04/04/17 04/04/17 06:59 18:59 Intake Total 490 Output Total 800 Balance -310 - Medications Medications: Current Medications Ferrous Gluconate (Fergon) 324 mg PO TID [facility] Last Admin: 04/03/17 17:10 Dose: 324 mg Folic Acid (Folic Acid) 1 mg PO BID [facility] Last Admin: 04/03/17 17:11 Dose: 1 mg Acetaminophen (Ofirmev) 1,000 mg in 100 mls @ 400 mls/hr IVPB Q6H PRN PRN Reason: Headache Stop: 04/04/17 17:51 Last Admin: 04/02/17 18:04 Dose: 400 mls/hr Cefepime HCl (Maxipime 1gm) 1 gm in 100 mls @ 100 mls/hr IVPB Q8 [facility] PRN Reason: Protocol Stop: 04/12/17 07:54 Last Admin: 04/03/17 13:24 Dose: 100 mls/hr Vancomycin HCl (Vancomycin 1gm) 1 gm in 250 mls @ 167 mls/hr IVPB Q12H [facility] PRN Reason: Protocol Stop: 04/12/17 08:01 Last Admin: 04/03/17 20:27 Dose: 167 mls/hr Ibuprofen (Motrin Tab) 600 mg PO Q6H PRN PRN Reason: Pain, moderate (4-7) Last Admin: 04/04/17 02:05 Dose: 600 mg Lamotrigine (Lamictal) 200 mg PO BID [facility] PRN Reason: Protocol Last Admin: 04/03/17 17:11 Dose: 200 mg Levetiracetam (Keppra) 1,000 mg PO BID [facility] Last Admin: 04/03/17 17:11 Dose: 1,000 mg Levetiracetam (Keppra) 250 mg PO BID [facility] Last Admin: 04/03/17 17:11 Dose: 250 mg Lorazepam (Ativan) 1 mg IVP Q4 PRN; Protocol PRN Reason: Seizure activity Multivitamins/Minerals (Therapeutic-M Tab) 1 tab PO 0800 [facility] Pantoprazole Sodium (Protonix Ec Tab) 40 mg PO ACB [facility] Topiramate (Topamax) 200 mg PO BID [facility] PRN Reason: Protocol Last Admin: 04/03/17 17:12 Dose: 200 mg - Labs Labs: 04/04/17 06:05 04/04/17 06:05 PT 10.4 Seconds (9.9-11.8) 04/02/17 11:45 INR 0.96 (0.93-1.08) 04/02/17 11:45 APTT 25.2 Seconds (23.7-30.8) 04/02/17 11:45 - Constitutional Appears: No Acute Distress - Head Exam Head Exam: ATRAUMATIC, NORMAL INSPECTION, NORMOCEPHALIC - Eye Exam Eye Exam: Normal appearance, PERRL Pupil Exam: Mydriatic, NORMAL ACCOMODATION, PERRL - ENT Exam ENT Exam: Mucous Membranes Moist, Normal Exam - Neck Exam Neck Exam: Full ROM - Respiratory Exam Respiratory Exam: Clear to Ausculation Bilateral, NORMAL BREATHING PATTERN. absent: Rales, Rhonchi, Wheezes - Cardiovascular Exam Cardiovascular Exam: REGULAR RHYTHM, +S1, +S2. absent: Gallop, Rubs, Murmur - GI/Abdominal Exam GI & Abdominal Exam: Soft, Normal Bowel Sounds. absent: Rigid, Tenderness, Mass , Rebound - Extremities Exam Extremities Exam: Normal Inspection. absent: Calf Tenderness, Pedal Edema - Neurological Exam Neurological Exam: Alert, Awake, CN II-XII Intact, Oriented x3 - Psychiatric Exam Psychiatric exam: Normal Affect, Normal Mood - Skin Skin Exam: Dry, Intact, Normal Color, Warm Assessment and Plan - Assessment and Plan (Free Text) Assessment: This is a 37Y F with PMH TBI with MANGLE CATCHER shunt and seizures admitted for epileptic episode lasting 25 minutes. Patient doing well. No seizure since admission and was afebrile overnight. She is also noted to have iron deficiency anemia. Plan: Neuro: A&O x 3 Neurochecks Neuro consulted- advised for pt to restart home seizure meds On Lamictal, Keppra, Topamax and Folic acid Ativan prn Maintain normothermia CV: HD stable at this time Pt noted to have moments of bradycardia Cardio consulted- thinks it can be secondary to lead wire malfunction- but ordered Holter monitor for observation Resp: Comfortable on room air Maintain SpO2>90% GI: Pt tolerating diet Nephro: Continue monitor electrolytes and will replace as needed Heme: Iron deficiency anemia Hgb stable On oral iron Received Venofer yesterday ID: ID consulted for fever Pt on Vanco PCT low Urine culture showed gram neg carmela Afebrile, no leukocytosis Endo: Maintain euglycemia GI ppx: PTX DVT ppx: SCDs Dispo: Patient is stable and will be transferred. Case seen, reviewed and discussed with attending. Brad Glasgow PGY1 <Narendra Quinonez B - Last Filed: 04/04/17 13:30> Objective - Vital Signs/Intake and Output Vital Signs (last 24 hours): Temp Pulse Resp BP Pulse Ox 98.1 F 99 H 37 H 117/60 100 04/04/17 07:41 04/04/17 13:10 04/04/17 13:10 04/04/17 13:10 04/04/17 13:10 Intake and Output: 04/04/17 04/04/17 06:59 18:59 Intake Total 490 Output Total 800 Balance -310 - Medications Medications: Current Medications Docusate Sodium (Colace) 100 mg PO DAILY [facility] Last Admin: 04/04/17 09:55 Dose: 100 mg Ferrous Gluconate (Fergon) 324 mg PO TID [facility] Last Admin: 04/04/17 09:54 Dose: 324 mg Folic Acid (Folic Acid) 1 mg PO BID [facility] Last Admin: 04/04/17 09:54 Dose: 1 mg Acetaminophen (Ofirmev) 1,000 mg in 100 mls @ 400 mls/hr IVPB Q6H PRN PRN Reason: Headache Stop: 04/04/17 17:51 Last Admin: 04/02/17 18:04 Dose: 400 mls/hr Cefepime HCl (Maxipime 1gm) 1 gm in 100 mls @ 100 mls/hr IVPB Q8 [facility] PRN Reason: Protocol Stop: 04/12/17 07:54 Last Admin: 04/03/17 13:24 Dose: 100 mls/hr Vancomycin HCl (Vancomycin 1gm) 1 gm in 250 mls @ 167 mls/hr IVPB Q12H [facility] PRN Reason: Protocol Stop: 04/12/17 08:01 Last Admin: 04/04/17 07:55 Dose: 167 mls/hr Ibuprofen (Motrin Tab) 600 mg PO Q6H PRN PRN Reason: Pain, moderate (4-7) Last Admin: 04/04/17 07:56 Dose: 600 mg Lamotrigine (Lamictal) 200 mg PO BID [facility] PRN Reason: Protocol Last Admin: 04/04/17 09:53 Dose: 200 mg Levetiracetam (Keppra) 1,000 mg PO BID [facility] Last Admin: 04/04/17 09:54 Dose: 1,000 mg Levetiracetam (Keppra) 250 mg PO BID [facility] Last Admin: 04/04/17 09:54 Dose: 250 mg Lorazepam (Ativan) 1 mg IVP Q4 PRN; Protocol PRN Reason: Seizure activity Meloxicam (Mobic) 15 mg PO ONCE ONE Stop: 04/05/17 10:59 Last Admin: 04/04/17 11:25 Dose: 15 mg Multivitamins/Minerals (Therapeutic-M Tab) 1 tab PO 0800 [facility] Last Admin: 04/04/17 07:56 Dose: 1 tab Pantoprazole Sodium (Protonix Ec Tab) 40 mg PO ACB [facility] Last Admin: 04/04/17 07:56 Dose: 40 mg Polyethylene Glycol (Miralax) 17 gm PO DAILY [facility] Last Admin: 04/04/17 09:52 Dose: 17 gm Topiramate (Topamax) 200 mg PO BID [facility] PRN Reason: Protocol Last Admin: 04/04/17 09:54 Dose: 200 mg - Labs Labs: 04/04/17 06:05 04/04/17 06:05 PT 10.4 Seconds (9.9-11.8) 04/02/17 11:45 INR 0.96 (0.93-1.08) 04/02/17 11:45 APTT 25.2 Seconds (23.7-30.8) 04/02/17 11:45 Attending/Attestation - Attestation I have personally seen and examined this patient.: Yes I have fully participated in the care of the patient.: Yes I have reviewed all pertinent clinical information, including history, physical exam and plan: Yes Notes (Text): 04/04/17 13:29 37 yo with breakthrough seizures. Now seizures free, alert awake oritented times 3. No gross neuro deficit. Neuro follow up appreciated. Continue anti-sz meds. ok to downgrade to medsurg ccm time 40 min
[2017-04-04] MEDS: Vancomycin 1gm in NS 250ml 1 GM/250 ML BAG IVPB SCH (07:55)
[2017-04-04] MEDS: Multivitamin With Minerals Tab PO SCH (07:56)
[2017-04-04] MEDS: Pantoprazole 40 mg EC Tab PO SCH (07:56)
--- NOTE | 2017-04-04 09:30 | CP.PCM.PN ---
<Mac Daniels - Last Filed: 04/04/17 11:35> Subjective - Date & Time of Evaluation Date of Evaluation: 04/04/17 Time of Evaluation: 07:00 - Subjective Subjective: Pt was seen and examined at bedside. Pt has no acute complaints at this time. Pt experienced an allergic reaction to abx, and therefore has been placed on hold. Pt had a temp of 100.1 overnight. No further seizures. Pt is ambulating, tolerating diet and moving bladder regularly. Pt has not had a bm yet. Pt denied fever, chills, neck stiffness, photophobia, chest pains, abdominal pains , n/v/d/c or urinary symptoms. Objective - Vital Signs/Intake and Output Vital Signs (last 24 hours): Temp Pulse Resp BP Pulse Ox 98.1 F 76 14 97/51 L 96 04/04/17 07:41 04/04/17 08:00 04/04/17 07:00 04/04/17 06:02 04/04/17 08:00 Intake and Output: 04/04/17 04/04/17 06:59 18:59 Intake Total 490 Output Total 800 Balance -310 - Medications Medications: Current Medications Docusate Sodium (Colace) 100 mg PO DAILY [facility] Ferrous Gluconate (Fergon) 324 mg PO TID [facility] Last Admin: 04/03/17 17:10 Dose: 324 mg Folic Acid (Folic Acid) 1 mg PO BID [facility] Last Admin: 04/03/17 17:11 Dose: 1 mg Acetaminophen (Ofirmev) 1,000 mg in 100 mls @ 400 mls/hr IVPB Q6H PRN PRN Reason: Headache Stop: 04/04/17 17:51 Last Admin: 04/02/17 18:04 Dose: 400 mls/hr Cefepime HCl (Maxipime 1gm) 1 gm in 100 mls @ 100 mls/hr IVPB Q8 [facility] PRN Reason: Protocol Stop: 04/12/17 07:54 Last Admin: 04/03/17 13:24 Dose: 100 mls/hr Vancomycin HCl (Vancomycin 1gm) 1 gm in 250 mls @ 167 mls/hr IVPB Q12H [facility] PRN Reason: Protocol Stop: 04/12/17 08:01 Last Admin: 04/04/17 07:55 Dose: 167 mls/hr Ibuprofen (Motrin Tab) 600 mg PO Q6H PRN PRN Reason: Pain, moderate (4-7) Last Admin: 04/04/17 07:56 Dose: 600 mg Lamotrigine (Lamictal) 200 mg PO BID [facility] PRN Reason: Protocol Last Admin: 04/03/17 17:11 Dose: 200 mg Levetiracetam (Keppra) 1,000 mg PO BID [facility] Last Admin: 04/03/17 17:11 Dose: 1,000 mg Levetiracetam (Keppra) 250 mg PO BID [facility] Last Admin: 04/03/17 17:11 Dose: 250 mg Lorazepam (Ativan) 1 mg IVP Q4 PRN; Protocol PRN Reason: Seizure activity Multivitamins/Minerals (Therapeutic-M Tab) 1 tab PO 0800 [facility] Last Admin: 04/04/17 07:56 Dose: 1 tab Pantoprazole Sodium (Protonix Ec Tab) 40 mg PO ACB [facility] Last Admin: 04/04/17 07:56 Dose: 40 mg Polyethylene Glycol (Miralax) 17 gm PO DAILY [facility] Topiramate (Topamax) 200 mg PO BID [facility] PRN Reason: Protocol Last Admin: 04/03/17 17:12 Dose: 200 mg - Labs Labs: 04/04/17 06:05 04/04/17 06:05 PT 10.4 Seconds (9.9-11.8) 04/02/17 11:45 INR 0.96 (0.93-1.08) 04/02/17 11:45 APTT 25.2 Seconds (23.7-30.8) 04/02/17 11:45 - Constitutional Appears: No Acute Distress - Head Exam Head Exam: ATRAUMATIC, NORMAL INSPECTION, NORMOCEPHALIC - Eye Exam Eye Exam: EOMI, Normal appearance, PERRL Pupil Exam: NORMAL ACCOMODATION, PERRL - ENT Exam ENT Exam: Mucous Membranes Moist, Normal Exam - Neck Exam Neck Exam: Full ROM, Normal Inspection. absent: Lymphadenopathy - Respiratory Exam Respiratory Exam: Clear to Ausculation Bilateral, NORMAL BREATHING PATTERN - Cardiovascular Exam Cardiovascular Exam: REGULAR RHYTHM, +S1, +S2. absent: Murmur - GI/Abdominal Exam GI & Abdominal Exam: Soft, Normal Bowel Sounds. absent: Tenderness - Extremities Exam Extremities Exam: Full ROM, Normal Capillary Refill, Normal Inspection. 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 1) Acute seizure, hx seizure disorder -Hx of seizure disorder 2/2 traumatic brain injury; no new trauma reported - afebrile overnight, IV tylenol currently, no signs of infx, negative procal - ID Dr. Valentin recommended vancomycin and cefepime, will discuss need for abx - restart home meds, Lamictal, Keppra, Topamax and Folic acid - ativan prn - neuro checks, seizure/aspiration precautions - TSH wnl - Neurology (Tata Lazcano) consulted, recommended restarting home meds and fu with epileptologist with whom pt has a scheduled appt for 04/07/17 2) Acidosis on ABG - resolved, likely 2/2 above -lactate wnl -repeat ABG reviewed 3) Hx iron def anemia -Hgb 8.9 on admit, within range of anemia during last admission - IV iron supplement, no need to transfuse at this time Ppx: Protonix for GI, SCDs for DVT Patient seen, reviewed, and discussed with attending, Dr. Noland. <Maddy Noland - Last Filed: 04/04/17 15:48> Objective - Vital Signs/Intake and Output Vital Signs (last 24 hours): Temp Pulse Resp BP Pulse Ox 98.1 F 78 14 102/55 L 100 04/04/17 07:41 04/04/17 14:00 04/04/17 14:00 04/04/17 14:00 04/04/17 14:00 Intake and Output: 04/04/17 04/04/17 06:59 18:59 Intake Total 490 Output Total 800 Balance -310 - Medications Medications: Current Medications Docusate Sodium (Colace) 100 mg PO DAILY [facility] Last Admin: 04/04/17 09:55 Dose: 100 mg Ferrous Gluconate (Fergon) 324 mg PO TID [facility] Last Admin: 04/04/17 13:43 Dose: 324 mg Folic Acid (Folic Acid) 1 mg PO BID [facility] Last Admin: 04/04/17 09:54 Dose: 1 mg Acetaminophen (Ofirmev) 1,000 mg in 100 mls @ 400 mls/hr IVPB Q6H PRN PRN Reason: Headache Stop: 04/04/17 17:51 Last Admin: 04/02/17 18:04 Dose: 400 mls/hr Ibuprofen (Motrin Tab) 600 mg PO Q6H PRN PRN Reason: Pain, moderate (4-7) Last Admin: 04/04/17 07:56 Dose: 600 mg Lamotrigine (Lamictal) 200 mg PO BID [facility] PRN Reason: Protocol Last Admin: 04/04/17 09:53 Dose: 200 mg Levetiracetam (Keppra) 1,000 mg PO BID [facility] Last Admin: 04/04/17 09:54 Dose: 1,000 mg Levetiracetam (Keppra) 250 mg PO BID [facility] Last Admin: 04/04/17 09:54 Dose: 250 mg Lorazepam (Ativan) 1 mg IVP Q4 PRN; Protocol PRN Reason: Seizure activity Meloxicam (Mobic) 15 mg PO ONCE ONE Stop: 04/05/17 10:59 Last Admin: 04/04/17 11:25 Dose: 15 mg Multivitamins/Minerals (Therapeutic-M Tab) 1 tab PO 0800 [facility] Last Admin: 04/04/17 07:56 Dose: 1 tab Pantoprazole Sodium (Protonix Ec Tab) 40 mg PO ACB [facility] Last Admin: 04/04/17 07:56 Dose: 40 mg Polyethylene Glycol (Miralax) 17 gm PO DAILY [facility] Last Admin: 04/04/17 09:52 Dose: 17 gm Topiramate (Topamax) 200 mg PO BID [facility] PRN Reason: Protocol Last Admin: 04/04/17 09:54 Dose: 200 mg - Labs Labs: 04/04/17 06:05 04/04/17 06:05 PT 10.4 Seconds (9.9-11.8) 04/02/17 11:45 INR 0.96 (0.93-1.08) 04/02/17 11:45 APTT 25.2 Seconds (23.7-30.8) 04/02/17 11:45 Attending/Attestation - Attestation I have personally seen and examined this patient.: Yes I have fully participated in the care of the patient.: Yes I have reviewed all pertinent clinical information, including history, physical exam and plan: Yes Notes (Text): 04/04/17 15:45 Hospitalist note: Patient seen and examined with resident in ER. 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 patient is currently awake and alert. Patient with mild memory problems due to traumatic brain injury in the past. continue po keppra and ativan. Neurology evaluation with Dr. Lazcano appreciated. Started back on Lamictal and Topamax. Fever: resolved. blood, urine culture negative. treated with IV vancomycin and cefepime. ID evaluation appreciated. history of Iron deficiency anemia: on IV iron. bradycardia; resolved. Cardiology evaluation with Dr. Johns appreciated. Currently on Holter monitor. Possible discharge home tomorrow. upon discharge the patient will follow up with PMD DR. Carbajal and Neurology at [facility] [place]. 04/04/17 15:48
[2017-04-04] MEDS: POLYETHYLENE GLYCOL 3350 17 GM/Dose PACKET PO SCH (09:52)
--- NOTE | 2017-04-04 12:55 | CP.PCM.PCO ---
Physician Communication Note - Physician Communication Note Physician Communication Note: No further szs. C/W home dose sz meds and f/u with outpt neuro.
--- NOTE | 2017-04-04 15:14 | PN ---
DATE: 04/04/2017 The patient is seen early this morning. No fevers, no chills, no nausea, no vomiting. PHYSICAL EXAMINATION: VITAL SIGNS: Temperature is 98, blood pressure is 117/60, respiratory rate of 37, a heart rate of 93 . HEENT: Unremarkable. NECK: Supple. LUNGS: Have decreased breath sounds. HEART: Normal S1, S2. ABDOMEN: Soft, nontender. LABORATORY EXAMINATION: Reveals a white count of 7.3, hemoglobin of 7, platelets of 283. BUN of 14, creatinine of 0.6, procalcitonin 0.0. Urinalysis is noted. Microbiology reveals a gram-negative ro d in the urine culture, greater than 100,000 colonies, with a negative urinalysis on the first urinal ysis. However, the second one there is too numerous to count, which she does not have any urinary sy mptoms. ASSESSMENT AND PLAN: A 37-year-old female with history of seizures and traumatic brain injury, subdu ral hematoma, central nervous system shunt with seizures and fever and negative urinalysis, negative dysuria, negative frequency, gram-negative carmela in the urine and repeat urinalysis does have white blo od cells and currently now off of antibiotics. We will discontinue the vancomycin and cefepime. Fol low the patient. If the patient does develop urinary symptoms, will require treatment. No indicatio n for antibiotics at this time. Lonnie Valentin MD cc: [id number] TT: 04/04/2017 15:14:07 Confirmation # [id number] Dictation # [id number] en
--- NOTE | 2017-04-04 16:07 | PN ---
DATE: 04/04/2017 REASON FOR CONSULTATION AND FOLLOWUP: Bradyarrhythmia, rule out artifact admitted with seizure disorder. BRIEF CLINICAL HISTORY: A 37-year-old male with past medical history of seizure disorder, traumatic brain injury, a KNOCKER OUT shunt, admitted with seizure disorder when the patient was in the ICU - one telemetry strip showed bradycardia with possible heart block with a small QS complex. The second lead at the same time, there was a lot of artifact, possibility of artifact. The patient remained asymptomatic. The patient denies any chest pain, shortness of breath, or any palpitation. PHYSICAL EXAMINATION: VITAL SIGNS: Temperature afebrile, heart rate 75, blood pressure 132/80. HEENT: PERRLA. Extraocular muscles intact. NECK: Supple. No carotid bruits. No thyromegaly. CHEST: Clear to auscultation. HEART: S1, S2 regular. ABDOMEN: Soft. EXTREMITIES: Clubbing and cyanosis negative. VITAL SIGNS: Blood pressure, as mentioned, 100/60. HEENT: PERRLA. Extraocular muscles intact. NECK: Supple. No carotid bruits. No thyromegaly. CHEST: Clear to auscultation. HEART: S1 and S2 regular. ABDOMEN: Soft. EXTREMITIES: Clubbing and cyanosis negative. LABORATORY DATA: Blood workup as follows: WBC 7.0, hemoglobin 7 hematocrit 27 , platelet count 283. Chemistry shows sodium 143, potassium 3.6, chloride 113, carbon dioxide 21, anion gap of 12 , BUN 14, creatinine 0.6. IMPRESSION: Anemia needs to be worked up, seizure disorder, bradycardia, possibly artifact. The patient is symptomatic only 1 lead. The second lead shows significant artifact. The patient had a recent echo - showed normal chamber size, normal ejection fraction, trace mitral regurgitation, trace tricuspid regurgitation dated 09/17/2015, most recent echo - as mentioned showed normal chamber size, trace tricuspid regurgitation, trace to mild mitral regurgitation. RECOMMENDATION: We will do Holter monitor to rule out real bradycardia and exclude artifact. We will follow with you. Continue GI workup for severe anemia. We will follow with you. Thank you, Dr. Noland, for providing us the opportunity in taking care of the patient. Kera Johns MD cc: [id number] TT: 04/04/2017 10:21:51 Confirmation # [id number] Dictation # [id number] jacqueline NAVARRETE
[2017-04-04 19:34] VITALS: RESP 20
[2017-04-05 09:21] VITALS: BP 99/64; TEMP 97.8; O2SAT 99
--- NOTE | 2017-04-05 10:03 | CP.PCM.DIS ---
Provider - Provider Date of Admission: 04/02/17 13:31 Attending physician: Maddy Noland MD Primary care physician: Isauro Carbajal MD Hospital Course - Lab Results Lab Results: Micro Results 04/03/17 08:30 Urine,Random Urine Culture - Final Klebsiella Pneumoniae Ssp Pneu 04/02/17 15:50 Nose MRSA Culture (Admit) - Final MRSA NOT DETECTED Most Recent Lab Values WBC 7.3 10^3/ul (4.5-11.0) 04/04/17 06:05 RBC 3.37 10^6/uL (3.5-6.1) L 04/04/17 06:05 Hgb 7.7 gm/dL (12.0-16.0) L 04/04/17 06:05 Hct 27.0 % (36.0-48.0) L 04/04/17 06:05 MCV 80.1 fL (80.0-105.0) 04/04/17 06:05 MCH 22.8 pg (25.0-35.0) L 04/04/17 06:05 MCHC 28.5 g/dl (31.0-37.0) L 04/04/17 06:05 RDW 15.9 % (11.5-14.5) H 04/04/17 06:05 Plt Count 283 10^3/uL (120.0-450.0) 04/04/17 06:05 MPV 9.7 fl (7.0-11.0) 04/04/17 06:05 Gran % 68.8 % (50.0-68.0) H 04/04/17 06:05 Lymph % (Auto) 22.3 % (22.0-35.0) 04/04/17 06:05 [place] % (Auto) 8.6 % (1.0-6.0) H 04/04/17 06:05 Eos % (Auto) 0.0 % (1.5-5.0) L 04/04/17 06:05 Baso % (Auto) 0.3 % (0.0-3.0) 04/04/17 06:05 Gran # 5.03 (1.4-6.5) 04/04/17 06:05 Lymph # 1.6 (1.2-3.4) 04/04/17 06:05 [place] # 0.6 (0.1-0.6) 04/04/17 06:05 Eos # 0.0 (0.0-0.7) 04/04/17 06:05 Baso # 0.02 K/mm3 (0.0-2.0) 04/04/17 06:05 PT 10.4 Seconds (9.9-11.8) 04/02/17 11:45 INR 0.96 (0.93-1.08) 04/02/17 11:45 APTT 25.2 Seconds (23.7-30.8) 04/02/17 11:45 pCO2 49 mm/Hg (35-45) H 04/02/17 12:57 pO2 134.0 mm/Hg (80-100) H 04/02/17 12:57 HCO3 18.3 mmol/L (21-28) L 04/02/17 12:57 ABG pH 7.18 (7.35-7.45) L* 04/02/17 12:57 ABG Total CO2 19.8 mmol.L (22-28) L 04/02/17 12:57 ABG O2 Saturation 98.5 % (95-98) H 04/02/17 12:57 ABG O2 Content 12.3 ML/dl (15-23) L 04/02/17 12:57 ABG Base Excess -9.6 mmol/L (-2.0-3.0) L 04/02/17 12:57 ABG Hemoglobin 8.9 g/dL (11.7-17.4) L 04/02/17 12:57 ABG Carboxyhemoglobin 1.0 % (0.5-1.5) 04/02/17 12:57 POC ABG HHb (Measured) 1.5 % (0-5) 04/02/17 12:57 ABG Methemoglobin 1.2 % (0.0-3.0) 04/02/17 12:57 ABG O2 Capacity 12.5 mL/dl (16-24) L 04/02/17 12:57 VBG pH 7.05 (7.32-7.43) L* 04/02/17 11:45 VBG pCO2 70.0 (40-60) H* 04/02/17 11:45 VBG HCO3 19.4 mmol/l (21-28) L 04/02/17 11:45 VBG Total CO2 21.5 mmol.L (22-28) L 04/02/17 11:45 VBG O2 Sat (Calc) 98.3 % (40-65) H 04/02/17 11:45 VBG Base Excess -11.2 mmol/L (0.0-2.0) L 04/02/17 11:45 VBG Potassium 3.9 mmol/L (3.6-5.2) 04/02/17 11:45 Hgb O2 Saturation 96.4 % (95.0-98.0) 04/02/17 12:57 Sodium 141.0 mmol/L (132-148) 04/02/17 11:45 Chloride 113.0 mmol/L (98-107) H 04/02/17 11:45 Glucose 169 mg/dl (65-105) H 04/02/17 11:45 Lactate 1.7 mmol/L (0.7-2.1) 04/02/17 11:45 FiO2 32.0 % 04/02/17 12:57 Sodium 142 mmol/L (132-148) 04/04/17 06:05 Potassium 3.6 mmol/L (3.6-5.0) 04/04/17 06:05 Chloride 113 mmol/L (98-107) H 04/04/17 06:05 Carbon Dioxide 21 mmol/L (21-33) 04/04/17 06:05 Anion Gap 12 (10-20) 04/04/17 06:05 BUN 14 mg/dL (7-21) 04/04/17 06:05 Creatinine 0.6 mg/dL (0.5-1.4) 04/04/17 06:05 Est GFR ( Amer) > 60 04/04/17 06:05 Est GFR (Non-Af Amer) > 60 04/04/17 06:05 Random Glucose 91 mg/dL (70-110) 04/04/17 06:05 Hemoglobin A1c 5.6 % (4.2-6.5) 04/04/17 06:05 Calcium 9.3 mg/dL (8.4-10.5) 04/04/17 06:05 Phosphorus 3.2 mg/dL (2.5-4.5) 04/04/17 06:05 Magnesium 2.2 mg/dL (1.7-2.2) 04/04/17 06:05 Iron 36 ug/dL (45-180) L 04/03/17 05:45 TIBC 383 ug/dL (265-497) 04/03/17 05:45 % Saturation 9 % (20-55) L 04/03/17 05:45 Ferritin 6.0 ng/mL 04/03/17 05:45 Total Bilirubin 0.2 mg/dL (0.2-1.3) 04/04/17 06:05 AST 16 U/L (15-39) 04/04/17 06:05 ALT 19 U/L (7-56) 04/04/17 06:05 Alkaline Phosphatase 64 U/L (38-133) 04/04/17 06:05 Lactate Dehydrogenase 244 U/L (333-699) L 04/03/17 05:45 Total Creatine Kinase 67 U/L (35-230) 04/03/17 05:45 Troponin I < 0.01 ng/mL 04/03/17 05:45 Total Protein 6.3 g/dL (5.8-8.3) 04/04/17 06:05 Albumin 3.6 g/dL (3.0-4.8) 04/04/17 06:05 Globulin 2.7 gm/dL 04/04/17 06:05 Albumin/Globulin Ratio 1.3 (1.1-1.8) 04/04/17 06:05 Triglycerides 104 mg/dL (35-160) 04/04/17 06:05 Cholesterol 159 mg/dL (130-200) 04/04/17 06:05 LDL Cholesterol Direct 96 mg/dL (0-129) 04/04/17 06:05 HDL Cholesterol 52 mg/dL (29-60) 04/04/17 06:05 Procalcitonin 0.05 NG/ML (0.19-0.49) L 04/03/17 06:30 TSH 3rd Generation 0.68 mIU/mL (0.46-4.68) 04/04/17 06:05 Venous Blood Potassium 3.9 mmol/L (3.6-5.2) 04/02/17 11:45 Urine Color Yellow (YELLOW) 04/03/17 08:30 Urine Appearance Clear (CLEAR) 04/03/17 08:30 Urine pH 6.5 (4.7-8.0) 04/03/17 08:30 Ur Specific [place] 1.015 (1.005-1.035) 04/03/17 08:30 Urine Protein Trace mg/dL (<30 mg/dL) H 04/03/17 08:30 Urine Glucose (UA) Negative mg/dL (NEGATIVE) 04/03/17 08:30 Urine Ketones Negative mg/dL (NEGATIVE) 04/03/17 08:30 Urine Blood Small (NEGATIVE) H 04/03/17 08:30 Urine Nitrate Negative (NEGATIVE) 04/03/17 08:30 Urine Bilirubin Negative (NEGATIVE) 04/03/17 08:30 Urine Urobilinogen 0.2 E.U./dL (<1 E.U./dL) 04/03/17 08:30 Ur Leukocyte Esterase Small Ravi/uL (NEGATIVE) H 04/03/17 08:30 Urine RBC 0 - 2 /hpf (0-2) 04/03/17 08:30 Urine WBC Tntc /hpf (0-6) 04/03/17 08:30 Ur Epithelial Cells 0 - 2 /hpf (0-5) 04/03/17 08:30 Urine Bacteria Small (NEG) 04/03/17 08:30 Ur Random Creatinine 61 mg/dL 04/02/17 16:45 Ur Random Sodium 220 meq/L 04/02/17 16:45 Ur Random Potassium 40.2 meq/L 04/02/17 16:45 Urine Chloride 242 mmol/L (32-290) 04/02/17 16:45 Urine HCG, Qual Negative (NEGATIVE) 04/03/17 08:30 Urine Opiates Screen Negative (NEGATIVE) 04/02/17 11:00 Urine Methadone Screen Negative (NEGATIVE) 04/02/17 11:00 Ur Barbiturates Screen Negative (NEGATIVE) 04/02/17 11:00 Ur Phencyclidine Scrn Negative (NEGATIVE) 04/02/17 11:00 Ur Amphetamines Screen Negative (NEGATIVE) 04/02/17 11:00 U Benzodiazepines Scrn Positive (NEGATIVE) H 04/02/17 11:00 U Oth Cocaine Metabols Negative (NEGATIVE) 04/02/17 11:00 U Cannabinoids Screen Negative (NEGATIVE) 04/02/17 11:00 Alcohol, Quantitative < 10 mg/dL (0-10) 04/02/17 11:45 Blood Type A POSITIVE 04/04/17 06:10 Blood Type Confirm A POSITIVE 04/04/17 07:32 Antibody Screen Negative 04/04/17 06:10 BBK History Checked No verified bt 04/04/17 06:10 Discharge Exam - Head Exam Head Exam: ATRAUMATIC, NORMAL INSPECTION, NORMOCEPHALIC Discharge Plan - Discharge Medications Prescriptions: Docusate [Colace] 100 mg PO DAILY #10 cap Ferrous Sulfate [Feosol] 324 mg PO BID #60 ect - Follow Up Plan Condition: SERIOUS Disposition: HOME/ ROUTINE Instructions: Epilepsy (DC) Additional Instructions: 1. Follow up with PMD DR. Carbajal in 1 week. 2. Follow up with [place] [facility] [place]. 3. Seizure precautions. 4. Fall precautions. Referrals: Isauro Carbajal MD [Primary Care Provider] -
[2017-04-05] MEDS: Pantoprazole 40 mg EC Tab PO SCH (10:15)
[2017-04-05] MEDS: Multivitamin With Minerals Tab PO SCH (10:15)
[2017-04-05] MEDS: POLYETHYLENE GLYCOL 3350 17 GM/Dose PACKET PO SCH (10:16)
[2017-04-05 11:35] VITALS: PULSE 72
--- NOTE | 2017-04-05 20:09 | CP.PCM.PN ---
Subjective - Date & Time of Evaluation Date of Evaluation: 04/05/17 Time of Evaluation: 08:00 - Subjective Subjective: DOING WELL Objective - Vital Signs/Intake and Output Vital Signs (last 24 hours): Temp Pulse Resp BP Pulse Ox 97.8 F 72 20 99/64 L 99 04/05/17 09:21 04/05/17 10:00 04/05/17 09:21 04/05/17 09:21 04/05/17 09:21 Intake and Output: 04/05/17 04/06/17 18:59 06:59 Intake Total 670 Balance 670 - Labs Labs: 04/04/17 06:05 04/04/17 06:05 PT 10.4 Seconds (9.9-11.8) 04/02/17 11:45 INR 0.96 (0.93-1.08) 04/02/17 11:45 APTT 25.2 Seconds (23.7-30.8) 04/02/17 11:45 - Constitutional Appears: Well - Head Exam Head Exam: ATRAUMATIC, NORMAL INSPECTION, NORMOCEPHALIC - Eye Exam Eye Exam: EOMI, Normal appearance, PERRL Pupil Exam: NORMAL ACCOMODATION, PERRL - ENT Exam ENT Exam: Mucous Membranes Moist, Normal Exam - Neck Exam Neck Exam: Full ROM, Normal Inspection. absent: Lymphadenopathy - Respiratory Exam Respiratory Exam: Clear to Ausculation Bilateral, NORMAL BREATHING PATTERN - Cardiovascular Exam Cardiovascular Exam: REGULAR RHYTHM, +S1, +S2. absent: Murmur - GI/Abdominal Exam GI & Abdominal Exam: Soft, Normal Bowel Sounds. absent: Tenderness - Rectal Exam Rectal Exam: NORMAL INSPECTION - Exam Exam: Circumcision, NORMAL INSPECTION External exam: NORMAL EXTERNAL EXAM Speculum exam: NORMAL SPECULUM EXAM Bimanual exam: NORMAL BIMANUAL EXAM - Extremities Exam Extremities Exam: Full ROM, Normal Capillary Refill, Normal Inspection. absent : Joint Swelling, Pedal Edema - Back Exam Back Exam: NORMAL INSPECTION - Neurological Exam Neurological Exam: Alert, Awake, CN II-XII Intact, Normal Gait, Oriented x3 - Psychiatric Exam Psychiatric exam: Normal Affect, Normal Mood - Skin Skin Exam: Dry, Intact, Normal Color, Warm Assessment and Plan (1) SIRS (systemic inflammatory response syndrome) Status: Acute - Assessment and Plan (Free Text) Assessment: SIRS Plan: OFF OF ABX
== END 2017-04-05 18:36 | disposition home or self-care (01) | DRG 532 ==
LOC: ED 11:05 → ERH 13:31 → CCU 15:41 → 3RNO 04-04 15:30
PROVIDERS: ADMIT Internal Medicine; ATTEND Internal Medicine
DX: G40.409 Other generalized epilepsy and epileptic syndromes, not intractable, without status epilepticus (principal); R65.10 Systemic inflammatory response syndrome (SIRS) of non-infectious origin without acute organ dysfunction; E87.2 Acidosis; I08.1 Rheumatic disorders of both mitral and tricuspid valves; D50.9 Iron deficiency anemia, unspecified; E66.9 Obesity, unspecified; Z79.899 Other long term (current) drug therapy; Z87.820 Personal history of traumatic brain injury; Z98.2 Presence of cerebrospinal fluid drainage device; Z98.84 Bariatric surgery status; F32.89 Other specified depressive episodes; R40.2412 Glasgow coma scale score 13-15, at arrival to emergency department; R00.1 Bradycardia, unspecified; Z68.34 Body mass index [BMI] 34.0-34.9, adult

== ENCOUNTER 2019-02-18 19:16 | Emergency (ER) | payer MEDICAID ==
[2019-02-18 19:16] VITALS: BMI 32.3
--- NOTE | 2019-02-18 19:21 | ED PDOC ---
Arrival/HPI - General Historian: Patient - History of Present Illness Narrative History of Present Illness (Text): 02/18/19 19:21 Patient is a 38 yo female with seizures and traumatic brain injury with [employer] shunt who presents after having a seizure tonight. Patient's mother is at bedside who helps provide the history. Patient was a passenger in the car today when her mother and sister heard her starting to make a noise and then she began shaking and foaming out of her mouth. Mother reports this episode lasted more approx 10 minutes and resolved on its own. Mother states that patient sees her neurologist, Dr. Medrano, regularly. He has not recently changed her medications, and she has been compliant taking them. She is scheduled for an outpatient EEG next week. Mother states it has been over a year since the patient had a seizure. Today was the anniversary of the patient's father's . Patient has been sleeping without difficulty. Mother states at baseline, patient is able to have conversations. Presently, patient is awake and able to follow commands. She is not talking and moving slow. Denies tounge trauma and incontinence. Time/Duration: Prior to Arrival Symptom Onset: Sudden Symptom Course: Improving <Abigail Hurt - Last Filed: 02/18/19 20:51> <Mansoor Cornell - Last Filed: 02/18/19 21:13> - General Chief Complaint: Altered Mental Status Time Seen by Provider: 02/18/19 19:19 Past Medical History - Provider Review Nursing Documentation Reviewed: Yes - Infectious Disease Hx of Infectious Diseases: None - Tetanus Immunization Tetanus Immunization: Unknown - Cardiac Hx Cardiac Disorders: No - Pulmonary Hx Respiratory Disorders: No - Neurological Hx Neurological Disorder: Yes (seizures) Hx Seizures: Yes - HEENT Hx HEENT Disorder: No Hx Blind: No - Renal Hx Renal Disorder: No - Endocrine/Metabolic Hx Endocrine Disorders: No - Hematological/Oncological Hx Anemia: Yes - Integumentary Hx Dermatological Disorder: No - Musculoskeletal/Rheumatological Hx Musculoskeletal Disorders: No - Gastrointestinal Hx Gastrointestinal Disorders: No (unknown by patient) - Genitourinary/Gynecological Hx Genitourinary Disorders: No - Psychiatric Hx Psychophysiologic Disorder: No Hx Substance Use: No - Past Surgical History Past Surgical History: Unable to Obtain - Surgical History Hx Gastric Bypass Surgery: Yes - Anesthesia Hx Anesthesia: Yes Hx Anesthesia Reactions: No Hx Malignant Hyperthermia: No - Suicidal Assessment Feels Threatened In Home Enviroment: No <Abigail Hurt - Last Filed: 02/18/19 20:51> Family/Social History Family/Social History: Unknown Family HX Smoking Status: Never Smoked Hx Alcohol Use: No Hx Substance Use: No Hx Substance Use Treatment: No <Abigail Hurt - Last Filed: 02/18/19 20:51> Allergies/Home Meds <Abigail Hurt - Last Filed: 02/18/19 20:51> <Mansoor Cornell - Last Filed: 02/18/19 21:13> Allergies/Adverse Reactions: Allergies No Known Allergies Allergy (Verified 02/18/19 19:24) Home Medications: Home Meds Medication Instructions Recorded Confirmed lamoTRIgine [Lamictal] 200 mg PO BID 04/02/17 02/18/19 clonazePAM [Klonopin] 0.5 mg PO DAILY 02/18/19 02/18/19 levETIRAcetam [Keppra] 500 mg PO BID 02/18/19 02/18/19 Review of Systems - Review of Systems Systems not reviewed;Unavailable: Altered Mental Status <Abigail Hurt - Last Filed: 02/18/19 20:51> Physical Exam - Physical Exam Physical Exam Limitations: Altered Mental Status Vital Signs Reviewed: Yes Temperature: Afebrile Blood Pressure: Normal Pulse: Regular Respiratory Rate: Normal Appearance: Positive for: Comfortable Pain Distress: None Mental Status: Positive for: Lethargic, other (Awake, alert, nonverbal) - Systems Exam Head: Present: Atraumatic Pupils: Present: PERRL Extroacular Muscles: Present: EOMI Conjunctiva: Present: Normal Mouth: Present: Moist Mucous Membranes Pharnyx: Present: Other (no tounge trauma) Nose (External): Present: Atraumatic Respiratory/Chest: Present: Clear to Auscultation, Good Air Exchange Cardiovascular: Present: Regular Rate and Rhythm, Normal S1, S2 Abdomen: No: Tenderness, Distention Neurological: Present: Other (follows commands, nonverbal, slow moving) Skin: Present: Warm, Dry, Normal Color Psychiatric: Present: Alert <Abigail Hurt - Last Filed: 02/18/19 20:51> Vital Signs Temp Pulse Resp BP Pulse Ox 02/18/19 19:31 97.8 F 83 18 121/69 99 <Mansoor Cornell - Last Filed: 02/18/19 21:13> Medical Decision Making ED Course and Treatment: 02/18/19 20:[address] Sleeping comfortably. Re-evaluation Time: 20:51 Reassessment Condition: Re-examined - Lab Interpretations I have reviewed the lab results: Yes Interpretation: No clinic. lab abnormalty - RAD Interpretation Radiology Orders: CT head- no acute pathology Steel Worker: ED Physician - EKG Interpretation EKG Interpretation (Text): 02/18/19 19:55 NSR Interpreted by ED Physician: Yes Type: 12 lead EKG - Medication Orders Current Medication Orders: 02/18/19 20:56 Keppra 1000 mg PO Lamictal 200 mg PO <Abigail Hurt - Last Filed: 02/18/19 20:51> ED Course and Treatment: Patient Seen with Resident: In agreement with resident note which contains more details about the patient. Patient seen and evaluated with resident. Came up with plan and treatment together. - Lab Interpretations Lab Results: Total Bilirubin 0.2 mg/dL (0.2-1.3) 02/18/19 19:30 AST 29 U/L (14-36) 02/18/19 19:30 ALT 17 U/L (7-56) 02/18/19 19:30 Alkaline Phosphatase 81 U/L (38-126) 02/18/19 19:30 Total Protein 7.8 g/dL (5.8-8.3) 02/18/19 19:30 Albumin 4.5 g/dL (3.0-4.8) 02/18/19 19:30 Globulin 3.3 gm/dL 02/18/19 19:30 Albumin/Globulin Ratio 1.3 (1.1-1.8) 02/18/19 19:30 - RAD Interpretation Radiology Orders: 02/18/19 19:28 HEAD W/O CONTRAST [CT] Stat - Medication Orders Current Medication Orders: Discontinued Medications Lamotrigine (Lamictal) 200 mg PO STAT STA; Protocol Stop: 02/18/19 20:55 Levetiracetam (Keppra) 1,000 mg PO STAT STA Stop: 02/18/19 20:55 <Mansoor Cornell - Last Filed: 02/18/19 21:13> Disposition/Present on Arrival - Present on Arrival Any Indicators Present on Arrival: No History of DVT/PE: No History of Uncontrolled Diabetes: No Urinary Catheter: No History Surgical Site Infection Following: None - Disposition Have Diagnosis and Disposition been Completed?: Yes Disposition Time: 20:56 Patient Plan: Discharge <Abigail Hurt - Last Filed: 02/18/19 20:51> <Mansoor Cornell - Last Filed: 02/18/19 21:13> - Disposition Diagnosis: Seizure Disposition: HOME/ ROUTINE Condition: IMPROVED Discharge Instructions (ExitCare): Seizures, Adult (DC) Additional Instructions: Continue taking medications as prescribed by your neurologist. Continue follow- up with him next week for regularly scheduled EEG. Referrals: Armando Medrano MD [Staff Provider] - Follow up with primary Forms: [email or web address] ([employer])
[2019-02-18 19:41] VITALS: RESP 18; TEMP 97.8
[2019-02-18 19:52] LABS: ALB/GLOB RATIO 1.3 (1.1-1.8); ALBUMIN 4.5 g/dL (3.0-4.8); ALT/SGPT 17 U/L (7-56); AST/SGOT 29 U/L (14-36); BASO # 0.03 K/mm3 (0.0-2.0); BASO % 0.3 % (0.0-3.0); BLOOD UREA NITROGEN 19 mg/dL (7-21); CALCIUM 8.6 mg/dL (8.4-10.5); EOS # 0.1 (0.0-0.7); EOS % 0.6 % (1.5-5.0); GFR NON-AFRICAN AMERICAN > 60; HEMOGLOBIN 9.1 g/dL (12.0-16.0); LYMPH # 1.8 (1.2-3.4); LYMPH % 15.1 % (22.0-35.0); MEAN CELL VOLUME 82.9 fl (80.0-105.0); MEAN CORPUSCULAR HEMOGLOBIN 23.6 pg (25.0-35.0); MEAN CORPUSCULAR HGB CONC 28.5 g/dl (31.0-37.0); MEAN PLATELET VOLUME 9.8 fl (7.0-11.0); MONO # 0.8 (0.1-0.6); MONO % 6.7 % (1.0-6.0); RBC 3.85 10^6/uL (3.5-6.1); RED CELL DISTRIBUTION WIDTH 14.7 % (11.5-14.5); WHITE BLOOD COUNT 11.6 10^3/uL (4.5-11.0)
[2019-02-18 20:15] LABS: FREE T4 0.81 ng/dL (0.78-2.19)
[2019-02-18 20:55] LABS: BARBITURATES, UR NEGATIVE (NEGATIVE); BENZODIAZEPINES, UR NEGATIVE (NEGATIVE); OPIATES, UR NEGATIVE (NEGATIVE); PHENCYCLIDINE, UR NEGATIVE (NEGATIVE)
[2019-02-18 22:03] VITALS: BP 135/63; PULSE 78; O2SAT 100
--- NOTE | 2019-02-19 09:17 | CARD ---
APPROVED REPORT Date of service: 02/18/2019 EKG Measurement Heart [id number] ID [id number] <Conclusion> Normal sinus rhythm Normal ECG
--- NOTE | 2019-02-19 09:50 | CT ---
Date of service: 02/18/2019 PROCEDURE: CT HEAD WITHOUT CONTRAST. HISTORY: seizure COMPARISON: 04/02/2017. TECHNIQUE: Axial computed tomography images were obtained through the head/brain without intravenous contrast. Radiation dose: Total exam DLP = 819.2 mGy-cm. This CT exam was performed using one or more of the following dose reduction techniques: Automated exposure control, adjustment of the mA and/or kV according to patient size, and/or use of iterative reconstruction technique. FINDINGS: HEMORRHAGE: No intracranial hemorrhage. BRAIN: Since the prior examination there has been no significant interval change in position of the right trans parietal shunt catheter which terminates just beyond the left lateral ventricle. Mckinney-white matter differentiation is preserved. There is persistent diffuse effacement of cortical sulci and slit-like decompressed ventricles with stable chronic mass effect and 2 mm midline shift from left to right. There is a stable left convexity chronic subdural collection. VENTRICLES: Stable decompressed slit-like ventricles. No interval change. No hydrocephalus. CALVARIUM: Status post left parietal craniotomy and duraplasty. PARANASAL SINUSES: There is fluid and aerosolized secretions in the left sphenoid chamber. The remaining included paranasal sinuses are clear. MASTOID AIR CELLS: Predominantly clear. OTHER FINDINGS: None. IMPRESSION: 1. No acute intracranial abnormality. 2. Stable position of right transparietal shunt catheter terminating just beyond the left lateral ventricle with completely decompressed ventricular system and stable chronic mass effect and 2 mm midline shift from left to right. Stable appearance of left convexity chronic subdural collection.
== END 2019-02-18 21:30 | disposition home or self-care (01) ==
LOC: ED 19:16
DX: R56.9 Unspecified convulsions (principal); Z87.820 Personal history of traumatic brain injury; Z98.2 Presence of cerebrospinal fluid drainage device